=== PATIENT | male | born 1970 | race Caucasian/White ===

== ENCOUNTER 2016-06-30 15:22 | Emergency (ER) | payer OTHER, BC ==
[~2016-06-30] VITALS: Ht 180.3 cm; Wt 179.0 kg
[2016-06-30 15:28] VITALS: TEMP 36.5; Ht 180.3 cm; Wt 179.0 kg
[2016-06-30] MEDS ORDERED: CYCL10TA7 PO (16:07)
--- NOTE | 2016-06-30 17:22 | DIAGNOSTIC IMAGING REPORT ---
LEFT FEMUR 2 VIEWS ROUTINE CLINICAL HISTORY: pain to LEFT hip s/o fall trauma. Pain. COMPARISON: None. DISCUSSION: Mild degenerative change. Mild calcific trochanteric bursitis. No evidence for fracture. There is no evidence for soft tissue swelling. IMPRESSION: Mild degenerative change. No acute process. Mild calcific trochanteric bursitis left hip Electronically signed by: García Oconnor M.D. 06/30/2016 5:20 PM
--- NOTE | 2016-06-30 17:26 | DIAGNOSTIC IMAGING REPORT ---
LUMBAR SPINE 5 VIEWS HISTORY: Trauma. Pain. pain s/p fall COMPARISON: None. FINDINGS: Moderate degenerative disc change. No evidence for subluxation. No evidence for compression deformity. IMPRESSION: Moderate degenerative change. No acute bony abnormality. Electronically signed by: García Oconnor M.D. 06/30/2016 5:24 PM
--- NOTE | 2016-06-30 17:27 | DIAGNOSTIC IMAGING REPORT ---
PELVIS 1 OR 2 VIEW ROUTINE CLINICAL HISTORY: pain to LEFT hip s/p fall trauma. Pain. COMPARISON: None DISCUSSION: Mild degenerative change of both hips. Mild degenerative change sacroiliac joints and iliac wings bilaterally. No acute bony abnormality. IMPRESSION: Mild to moderate degenerative change. No acute bony abnormality. Electronically signed by: García Oconnor M.D. 06/30/2016 5:25 PM
[2016-06-30] MEDS ORDERED: CELE1CAP30 PO (17:39)
[2016-06-30] MEDS ORDERED: TRIA75TA53 PO (17:39)
[2016-06-30] MEDS ORDERED: HYDR-5688 PO (18:11)
--- NOTE | 2016-06-30 18:12 | EMERGENCY ROOM VISIT NOTE ---
History First contact with patient: 15:37 Chief Complaint: HIP PAIN Stated Complaint: LEFT HIP, LEG AND BACK PAIN History of Present Illness The patient is a 46 year old male who presents to the Emergency Department by private vehicle for evaluation of his LEFT leg pain, hip pain, and low back pain. He reports that while at work he accidentally stepped into a hole and twisted awkwardly falling to the ground landing on his LEFT side. He denies striking his head or any loss of consciousness. He reports progressively worsening pain the LEFT-sided hip, low back, and leg which is worsened throughout the day. He denies any numbness or tingling into the distal extremity. He denies any loss of control bowel/bladder or saddle anesthesia. The patient rates his current discomfort as a 6/10. He is to nothing over-the- counter this point her symptoms. He denies any history of fracture or injury to the affected areas. He denies any associated neck pain, upper back pain, knee pain, or ankle pain. Review of Systems A complete 10-point Review of Systems was discussed with the patient, with pertinent positives and negatives listed in the History of Present Illness. All remaining Review of Systems questions can be considered negative unless otherwise specified. Social History Smoking Status: Never Smoker Drug Use: none Housing Status: lives with family Occupation Status: employed Current/Historical Medications Scheduled Allopurinol (Allopurinol), 300 MG PO DAILY Ascorbic Acid (Vitamin C), 1,000 MG PO DAILY Celecoxib (Celecoxib), 200 MG PO DAILY Cholecalciferol (Vitamin D3), 2,000 INTER.UNIT PO DAILY Fish Oil ([place]-3), 1 CAP PO QPM Lisinopril (Lisinopril), 10 MG PO DAILY Triamterene/Hctz (Maxzide 75MG/50MG), 0.5 TAB PO DAILY Zinc Gluconate (Zinc), 50 MG PO DAILY Scheduled PRN Cyclobenzaprine HCl (Cyclobenzaprine HCl), 10 MG PO HS PRN for Muscle Spasm Hydrocodone/Acetaminophen 5MG/325MG ([place] 5MG/325MG), 1-2 TABLET PO Q4H PRN for Pain Allergies Coded Allergies: No Known Allergies (Unverified , 06/30/16) Physical Exam Vital Signs Date Time Temp Pulse Resp B/P Pulse Ox O2 Delivery O2 Flow Rate FiO2 06/30/16 18:30 79 18 152/87 98 06/30/16 15:28 36.5 83 22 168/98 96 Room Air Pain Rating (0-10): 6 Physical Exam VITAL SIGNS - Vital signs and nursing notes were reviewed. GENERAL - 46-year-old male appearing his stated age and in noticeable discomfort throughout the exam. ABDOMEN - Obese abdomen. Soft and non-tender to palpation. Bowel sounds normoactive all four quadrants. MUSCULOSKELETAL - mild reproducible tenderness to palpation to the left-sided lower lumbar paraspinal muscle distribution. No point tenderness over the spinous processes. Mild reproducible tenderness to palpation appreciated to the LEFT-sided greater trochanter. No pain extending into the lower leg or knee. Full range of motion of the affected hip and knee appreciated. +5/5 strength appreciated bilaterally of the lower extremities. NEUROLOGIC/VASCULAR - Neurovascularly intact distally with +3/5 dorsalis pedis pulses palpated bilaterally. Normal sensation to light and sharp touch appreciated distally. Medical Decision & Procedures ER Provider Diagnostic Interpretation: Radiological imaging and reports were reviewed by myself. Radiologist's Interpretation as follows: LEFT FEMUR 2 VIEWS ROUTINE CLINICAL HISTORY: pain to LEFT hip s/o fall trauma. Pain. COMPARISON: None. DISCUSSION: Mild degenerative change. Mild calcific trochanteric bursitis. No evidence for fracture. There is no evidence for soft tissue swelling. IMPRESSION: Mild degenerative change. No acute process. Mild calcific trochanteric bursitis left hip PELVIS 1 OR 2 VIEW ROUTINE CLINICAL HISTORY: pain to LEFT hip s/p fall trauma. Pain. COMPARISON: None DISCUSSION: Mild degenerative change of both hips. Mild degenerative change sacroiliac joints and iliac wings bilaterally. No acute bony abnormality. IMPRESSION: Mild to moderate degenerative change. No acute bony abnormality. LUMBAR SPINE 5 VIEWS HISTORY: Trauma. Pain. pain s/p fall COMPARISON: None. FINDINGS: Moderate degenerative disc change. No evidence for subluxation. No evidence for compression deformity. IMPRESSION: Moderate degenerative change. No acute bony abnormality. ED Course Patient was seen and evaluated by myself. The patient declines anything for pain while in the emergency department. X-ray of the lumbar spine, pelvis, and femur were obtained. Imaging results as above. Imaging results were reviewed with the patient who acknowledges understanding. The patient was educated on following up closely with his primary care provider from today's visit for Workmen's Compensation approved provider. The patient was educated on worrisome symptoms for return visit to the emergency department. Patient discharged home in good condition. Medical Decision Given the patient's presentation and exam findings, I did elect to perform the above-mentioned workup. The patient presented today with ongoing LEFT-sided hip and low back pain. He has reproducible tenderness to palpation in these locations. He declines any pain while in the emergency setting. His imaging studies were otherwise unremarkable. The patient has likely sustained a strain of his lumbar spine with a muscular contusion to the LEFT hip area. Regardless , the patient will need to follow closely with his primary care provider or Workmen's Compensation provider in the event that his symptoms are not improving. He was provided a work note for the next few days. He was provided pain medication for breakthrough symptoms. He was educated on worrisome symptoms for return visit to the emergency department. Patient discharged home in good condition. In the evaluation and treatment of this patient the following differential diagnoses were considered: Cauda equina syndrome, discitis, HNP, sciatica, epidural abscess, psoas abscess, musculoskeletal strain, lumbar fracture, lumbar dislocation, lumbar subluxation, spondylolisthesis, spondylosis, or compression fracture. Impression Primary Impression: Hip pain Additional Impressions: Lumbar strain, Fall Departure Information Dispostion Home / Self-Care Condition GOOD Prescriptions Hydrocodone/Acetaminophen 5MG/325MG ([place] 5MG/325MG) Tab 1-2 TABLET PO Q4H Y for Pain, #20 TAB For Initial Treatment Prov: Mariano Duarte PA-C 06/30/16 Referrals Parmjit Haile M.D. (PCP) Patient Instructions A Signature Page, My [facility] Additional Instructions You have been treated in the Emergency Department for Hip Pain/Strain and Lumbar Strain.s. You have been prescribed [place] to be used for pain control. This is a narcotic medication. You cannot drive or consume alcohol while on this medicine. This medicine should only be used for pain that cannot be controlled with over-the- counter pain medicines. For pain control, you can use the following [id number] medicines (if >12 yo): - Regular strength (325mg/tab) Tylenol (acetaminophen) 2 tabs every 4-6 hours as needed. Do not exceed 12 tablets in a 24 hour period. Avoid taking more than 4 grams (4000 mg) of Tylenol per day. This includes any other sources of acetaminophen you may take on a regular basis. - Regular strength (200 mg/tab) Advil (ibuprofen) 1-2 tabs every 4-6 hours as needed. Do not exceed a dose of 3200 mg per day. If this is a recent injury (<24 hrs), ice can be applied to the area of pain for the first 3 days to help decrease pain and inflammation. Ice massages can be performed by freezing water in a paper cup, peeling back the cup to expose the ice and then massaging over the affected area. Please be cautious with your movements of the next few days. Follow-up with your primary care provider or orthopedic surgeon if your symptoms are not improving over the next 4-5 days. Return to the Emergency Department if your current symptoms worsen despite treatment course outlined above.
[2016-06-30 18:30] VITALS: BP 152/87; PULSE 79; O2SAT 98
[2017-06-26] MEDS ORDERED: MAGN400T6 PO (12:11)
[2017-06-26] MEDS ORDERED: CHOL20005 PO (16:07)
[2017-06-26] MEDS ORDERED: ALL300 PO (17:39)
[2017-06-26] MEDS ORDERED: ASCO10003 PO (17:39)
[2017-06-26] MEDS ORDERED: LISI-461 PO (17:39)
[2017-06-26] MEDS ORDERED: OMEG10007 PO (17:39)
[2017-06-26] MEDS ORDERED: ZINC1TAB PO (17:39)
== END 2016-06-30 18:30 | disposition home or self-care (01) ==
LOC: C.EDB 15:25 → C.EDD 18:30
DX: S39.012A Strain of muscle, fascia and tendon of lower back, initial encounter (principal); M25.552 Pain in left hip; W17.2XXA Fall into hole, initial encounter; Y99.0 Civilian activity done for income or pay; Z79.899 Other long term (current) drug therapy

== ENCOUNTER 2017-06-01 08:00 | Day surgery (SDC) | payer BC ==
[2017-05-26 12:14] VITALS: BMI 55.0
--- NOTE | 2017-05-26 12:36 | PAT Medication Instructions ---
Service Date May 26, 2017. Current Home Medication List Allopurinol (Allopurinol), 300 MG PO QAM Ascorbic Acid (Vitamin C), 1,000 MG PO QAM Cholecalciferol (Vitamin D3), 2,000 INTER.UNIT PO QAM Fish Oil ([place]-3), 1 CAP PO QPM Lisinopril (Lisinopril), 10 MG PO QAM Magnesium Oxide (Mag-Ox), 400 MG PO QPM Triamterene/Hctz (Maxzide 75MG/50MG), 0.5 TAB PO QAM Zinc Gluconate (Zinc), 50 MG PO QAM Medication Instructions For Your Scheduled Surgery - Hold the following medications starting 05/26/17: Fish Oil ([place]-3), 1 CAP PO QPM - Hold the following medications the morning of surgery: Ascorbic Acid (Vitamin C), 1,000 MG PO QAM Cholecalciferol (Vitamin D3), 2,000 INTER.UNIT PO QAM Lisinopril (Lisinopril), 10 MG PO QAM Triamterene/Hctz (Maxzide 75MG/50MG), 0.5 TAB PO QAM Zinc Gluconate (Zinc), 50 MG PO QAM - Take the following medications the morning of surgery with a sip of water: Allopurinol (Allopurinol), 300 MG PO QAM - Take the following medications as scheduled the night before surgery: Magnesium Oxide (Mag-Ox), 400 MG PO QPM If you have any questions please call us at [phone] or [phone] or [phone]
[2017-05-26 13:25] LABS: HEMATOCRIT 43.8 % (42-52); MEAN CELL VOLUME 89.8 fL (80-100); MEAN CORPUSCULAR HEMOGLOBIN 29.9 pg (25-34); MEAN CORPUSCULAR HGB CONC 33.3 g/dl (32-36); PLATELET COUNT 258 K/uL (130-400); RED BLOOD COUNT 4.88 M/uL (4.7-6.1); WHITE BLOOD COUNT 6.74 K/uL (4.8-10.8)
[2017-05-26 13:33] LABS: PARTIAL THROMBOPLASTIN RATIO 1.1; PROTHROMBIN TIME (PATIENT) 10.7 SECONDS (9.0-12.0)
[2017-05-26 15:07] LABS: CALCIUM 9.8 mg/dl (8.5-10.1); CREATININE 0.89 mg/dl (0.60-1.40); POTASSIUM 4.3 mmol/L (3.5-5.1)
[2017-05-30 15:09] VITALS: BMI 55.0
[~2017-06-01] VITALS: Ht 180.3 cm; Wt 179.3 kg
--- NOTE | 2017-06-01 07:08 | HISTORY & PHYSICAL EXAMINATION ---
DATE OF ADMISSION: 06/01/2017 CHIEF COMPLAINT: Right foot persistent pain and discomfort and difficulty with shoewear. HISTORY OF PRESENT ILLNESS: The patient is a 47-year-old gentleman who presents for treatment of his right foot. He has been a long-term patient of my partner Dr. Baker. He has had a several year history of the right-lateral sided foot pain that has become worse with time. He has attempted conservative care including widened shoes and padding without adequate relief. He has a significant bunionette deformity. X-rays show bony prominence and a wide fourth and fifth intermetatarsal space. He elected to proceed with surgical treatment. PAST MEDICAL HISTORY: 1. Hypertension. 2. Sleep apnea. 3. Obesity. 4. Low back pain. PAST SURGICAL HISTORY: None. ALLERGIES: No known drug allergies. CURRENT MEDICINES: 1. Triamterene/hydrochlorothiazide. 2. Lisinopril. 3. Allopurinol. 4. Vitamin C. 5. Zinc. 6. Magnesium. 7. Vitamin D. 8. Fish oil. SOCIAL HISTORY: 47-year-old male. He does not smoke. No significant alcohol intake. FAMILY HISTORY: Noncontributory. REVIEW OF SYSTEMS: Negative for diabetes, neurologic problems, vascular problems, bleeding disorders. Denies any chest pain, no shortness of breath. No history of DVT or PE. PHYSICAL EXAMINATION: GENERAL: Reveals a slow pleasant, fairly large, middle-aged male. He looks to be in reasonably good health. HEENT: Benign. NECK: Supple. No lymphadenopathy. LUNGS: Clear to auscultation. HEART: Regular rate and rhythm. ABDOMEN: Soft, nontender, nondistended. EXTREMITIES: Grossly neurovascularly intact except as follows: Examination of the right foot reveals a prominent fifth metatarsal head and bunionette deformity. There appears to be a bursa inflammation in this area as well. He can flex and extend his toes appropriately. There are no areas of infection. X-RAYS: X-rays of the right foot reviewed. It shows a fairly prominent spur enlarged fifth metatarsal head with a slightly widened fourth and fifth intermetatarsal space measuring about 10 degrees. ASSESSMENT: 47-year-old male with persistent right foot pain consistent with bunionette deformity. He has failed conservative treatment and would like to have this fixed. PLAN: We are going to take him to the operating room and do a right bunionette correction. We will remove this fifth metatarsal head prominence and likely do a fifth metatarsal osteotomy. We planned on doing this at the surgical center, but due to his large size it has to be done in the main OR. The risks and benefits of this procedure were explained to the patient including but not limited to DVT, PE, , infection, neurological injury, vascular injury, bleeding problem, pain, limited range of motion, stiffness, failure to relieve symptoms, incomplete relief of symptoms, need for further surgery in the future, fracture, leg length inequality, nerve palsy, persistent pain, nonunion, malunion, recurrence of the deformity, etc. The patient understands and desires to proceed. Informed consent was obtained. We will plan on discharging him to home as long as things go well intraoperatively. He will need to wear a postop shoe for the next 4-6 weeks.
[~2017-06-01 08:00] MED LIST: ALL300 PO; ASCO10003 PO; CEFAZOLIN 3000MG IV PUSH 15 ML IV SCH; CHOL20005 PO; LACTATED RINGER'S 1000ML 1,000 ML IV SCH; LACTATED RINGER'S 1000ML IV SCH; LISI-461 PO; MAGN400T6 PO; OMEG10007 PO; TRIA75TA53 PO; ZINC1TAB PO
[2017-06-01] MEDS ORDERED: ONDANSETRON INJ 2 MG/ML 2 ML VIAL IV PRN (08:15)
[2017-06-01] MEDS ORDERED: ATROPINE SULFATE 0.1 MG/ML 5ML SYR IV PRN (08:15)
[2017-06-01] MEDS ORDERED: FENTANYL CITRATE INJ 50 MCG/1 ML 2 ML VIAL IV PRN (08:15)
[2017-06-01] MEDS ORDERED: HYDROmorphone INJ 1 MG/ML SYR IV PRN (08:15)
[2017-06-01] MEDS ORDERED: EpHEDrine SULFATE INJ 50 MG/ML AMP IV PRN (08:15)
[2017-06-01 08:32] VITALS: BP 151/94; PULSE 70; TEMP 36.7; O2SAT 97; Ht 180.3 cm; Wt 179.3 kg
[2017-06-01] MEDS ORDERED: FENTANYL CITRATE INJ 50 MCG/1 ML 2 ML VIAL ONE (09:16)
[2017-06-01] MEDS ORDERED: MIDAZOLAM HCL 1 MG/ML 2ML VIAL ONE (09:16)
[2017-06-01] MEDS ORDERED: BACITRACIN 50000 UNIT VIAL ONE (10:13)
[2017-06-01] MEDS ORDERED: BUPIVACAINE/EPINEPHRINE 0.5% MPF 1:200,000 30 ML VIAL ONE (10:53)
[2017-06-01] MEDS ORDERED: PROPOFOL IV EMULSION 10 MG/ML 20 ML VIAL IV ONE (11:08)
[2017-06-01] MEDS ORDERED: ROCURONIUM BROMIDE 10 MG/ML 5 ML VIAL IV ONE (11:08)
[2017-06-01] MEDS ORDERED: SUCCINYLCHOLINE 100MG/5ML SYR IV ONE (11:09)
[2017-06-01] MEDS ORDERED: ONDANSETRON INJ 2 MG/ML 2 ML VIAL ONE (11:09)
[2017-06-01] MEDS ORDERED: DEXAMETHASONE SOD INJ 4 MG/ML VIAL ONE (11:09)
--- NOTE | 2017-06-01 11:56 | [facility] Post Operative Brief Note ---
Immediate Operative Summary Operative Date Jun 01, 2017. Pre-Operative Diagnosis Persistent Right Foot Pain with Bunionette Deformity Post-Operative Diagnosis Persistent Right Foot Pain with Bunionette Deformity Procedure(s) Performed Right Foot Bunionette Correction, 5th Metatarsal Osteotomy Surgeon Dr. Vela Medical Communication Specialist Surgeon(s) JESSY Mills Estimated Blood Loss 10 ML Findings Bunnionette Fluids (cc crystalloids) 1000 cc Specimens None per Surgeon Drains None Anesthesia General Complication(s) None Disposition Recovery Room / PACU
[2017-06-01] MEDS ORDERED: SODIUM CHLORIDE 0.9% 1000ML 1,000 ML IV SCH (11:59)
[2017-06-01] MEDS ORDERED: CEFAZOLIN IV 2,000 MG in DEXTROSE 5% 50ML 50 ML IV SCH (12:00)
[2017-06-01] MEDS ORDERED: OXYCODONE/ACETAMINOPHEN 5-325 TAB PO PRN ×2 (12:00)
--- NOTE | 2017-06-01 12:02 | Discharge Instructions ---
Discharge Instructions Date of Service Jun 01, 2017. Admission Reason for Admission: Right Foot Bunionette Discharge Discharge Diagnosis / Problem: RIGHT FOOT PAIN, BUNIONETTE Discharge Goals Goal(s): Decrease discomfort, Therapeutic intervention Activity Recommendations Activity Limitations: per Instructions/Follow-up section Weightbearing Status: Right weightbearing (as tolerated ON HEEL WITH POST OP SHOE ) . Instructions / Follow-Up Instructions / Follow-Up MEDICATIONS: * Resume previous medications unless instructed otherwise by your surgeon. * Always take pain medication on a full stomach or with food to avoid upset stomach. * Do not drink alcohol or drive while taking narcotics. * Ibuprofen or Tylenol may be taken if narcotic not needed. SPECIAL CARE INSTRUCTIONS: __ None _X_ Keep extremity elevated and iced x 48 hours; apply ice 20-30 minutes 8-10 times/day. May remove at night. __ Crutches __ May discard when able __ Brace/Post-op shoe __ 24 hrs/day __ Remove at night _X_ Dressing _X_ Maintain until seen in office, may shower with plastic over site __ Remove dressings in 24-48 hours and then may shower __ Cover incisions with band-aids after showering __ Do not remove steri-strips Call physician if chills or temperature rises above 102 degrees or pain unrelieved by prescribed pain medications. Office [phone] FOLLOW UP IN 2 WEEKS Current Hospital Diet Patient's current hospital diet: Discharge Diet Recommended Diet: Regular Diet Procedures Procedures Performed: Right Foot Bunionette Correction, 5th Metatarsal Osteotomy Pending Studies Studies pending at discharge: no Medical Emergencies . Who to Call and When: Medical Emergencies: If at any time you feel your situation is an emergency, please call 911 immediately. . Non-Emergent Contact Non-Emergency issues call your: Surgeon . "Provider Documentation" section prepared by Lucio Martínez. . VTE Core Measure Inpt VTE Proph given/why not?: Treatment not indicated
[2017-06-01 12:45] VITALS: BP 129/64; PULSE 80; TEMP 36.1; O2SAT 91
[2017-06-01 13:15] VITALS: BP 118/52; PULSE 71; TEMP 36.8; O2SAT 95
--- NOTE | 2017-06-01 13:15 | Anesthesiology Progress Note ---
Anesthesia Post Op Note Date & Time Jun 01, 2017 at 12:44 Vital Signs Pain Intensity: 0 Vital Signs Past 12 Hours Date Time Temp Pulse Resp B/P (MAP) Pulse Ox O2 Delivery O2 Flow Rate FiO2 06/01/17 12:37 36.5 06/01/17 12:36 136/70 06/01/17 12:34 72 22 06/01/17 12:34 70 22 95 06/01/17 12:31 132/72 06/01/17 12:29 86 16 06/01/17 12:29 85 16 88 06/01/17 12:26 146/74 06/01/17 12:24 86 18 06/01/17 12:24 85 18 90 06/01/17 12:21 136/78 06/01/17 12:19 79 22 06/01/17 12:19 78 22 93 06/01/17 12:16 145/81 06/01/17 12:14 86 23 95 06/01/17 12:14 86 23 06/01/17 12:11 151/83 06/01/17 12:09 84 24 95 06/01/17 12:09 85 24 06/01/17 12:05 156/82 06/01/17 12:04 91 24 06/01/17 12:04 91 24 94 06/01/17 12:01 156/82 06/01/17 12:00 172/87 06/01/17 11:59 88 25 06/01/17 11:59 88 25 96 06/01/17 11:59 36.5 87 16 172/87 96 Oxymask 10 06/01/17 08:32 36.7 70 18 151/94 (113) 97 Room Air Notes Mental Status: alert / awake / arousable, participated in evaluation Pt Amnestic to Procedure: Yes Nausea / Vomiting: adequately controlled Pain: adequately controlled Airway Patency, RR, SpO2: stable & adequate BP & HR: stable & adequate Hydration State: stable & adequate Anesthetic Complications: no major complications apparent The patient is doing well in recovery with no pain. His upper lip is a little swollen from the intubation as the Glidescope likely caught his upper lip, teeth intact. I informed him that this should improve over the next couple days. I also instructed him to use his CPAP at home whenever he thinks he may asleep even if just a for a nap on the couch or recliner. He understands and agrees.
[2017-06-01 13:45] VITALS: BP 137/61; PULSE 76; O2SAT 93
--- NOTE | 2017-06-01 13:54 | DIAGNOSTIC IMAGING REPORT ---
R FOOT 2 VIEWS CLINICAL HISTORY: RT METATARSAL OSTEOTOMY COMPARISON STUDY: Right foot radiographs May 03, 2017. FLUOROSCOPY TIME: 17 seconds. FINDINGS: 2 fluoroscopic images demonstrate expected findings following a distal right fifth metatarsal osteotomy. A screw is in place. There are no unexpected radiopaque foreign bodies. Hardware is intact. IMPRESSION: Expected findings following right fifth metatarsal osteotomy. Electronically signed by: Salbador Mejía M.D. 06/01/2017 1:52 PM Dictated Date/Time: 06/01/2017 1:51 PM
--- NOTE | 2017-06-01 13:57 | OPERATIVE REPORT ---
DATE OF OPERATION: 06/01/2017 SURGEON: Dr. Morgan Vela. DONOR SERVICES SPECIALIST: JESSY Garcia PREOPERATIVE DIAGNOSIS: Right symptomatic bunionette deformity. POSTOPERATIVE DIAGNOSIS: Same. PROCEDURE: Right bunionette correction with distal metatarsal Chevron osteotomy. COMPLICATIONS: None. ESTIMATED BLOOD LOSS: 10 mL. TOURNIQUET TIME: 41 minutes at 350 mmHg. ANESTHETIC: General. SPECIMENS: None. OPERATIVE IMPLANTS: Operative implants consisted of a Synthes 2.0 titanium fully threaded cortical screw. OPERATIVE INDICATIONS: The patient is a 47-year-old gentleman who has had a fairly long history of right foot pain and discomfort. He describes it has gotten worse over the years. He tried a combination of shoe wear, but had a very wide foot. He continued to bother by fifth lateral eminence pain. He had an extra bony growth in that area of his foot as well. He had significant bursitis. He elected to proceed with surgical treatment. OPERATIVE PROCEDURE: The patient was taken to the operating room, identified and placed on the operating table in the supine position. All contact areas were appropriately padded. IV antibiotics were provided by the anesthesia team. A general anesthetic was implemented by anesthesia team. Right thigh tourniquet was then placed. The right lower extremity was then prepped and draped in the usual sterile fashion. The right leg was elevated and exsanguinated with Esmarch and tourniquet was placed at 350 mmHg. A direct lateral approach to the fifth metatarsal was then performed through a long curvilinear incision over the lateral aspect of the fifth MTP joint. A sharp dissection was carried out through the subcutaneous tissue down to the level of the joint capsule. I then made an incision in the joint capsule on the dorsal side and elevated the soft tissue capsule off the fifth MTP joint. I exposed the MTP joint. I then used a saw to resect the prominent osteophyte/spur off the fifth metatarsal head. I then examined the foot and I was still concerned about the width, so I elected to perform an osteotomy. A Chevron osteotomy was then performed of the fifth metatarsal. I first placed a K-wire on the apex of the osteotomy just distal to the center point of the metatarsal head. I then used a microsagittal saw to create a Chevron osteotomy with an angle of about 50 degrees. I then very carefully loosened this and then shifted the distal piece medial and pulled the fifth metatarsal laterally. I then held this and fixed it with a single 2.0 titanium screw. This provided good fixation. I then used a saw to resect the residual eminence. X-ray was brought in and I felt this was optimally fixed and corrected. I irrigated the wound extensively. I injected locally with 20 mL of 0.5% Marcaine with epinephrine. The capsule was then repaired with 2-0 Vicryl suture in a [id number] fashion. The tourniquet was then let down for a tourniquet time of 42 minutes. Hemostasis was assured with the use of electrocautery. The wound was once again irrigated. Subcutaneous tissues were then closed with 2-0 Vicryl suture in a buried interrupted fashion and the skin was closed with 3-0 nylon suture in a horizontal mattress fashion. The foot was then cleaned and dried and a sterile dressing of Xeroform, 4 x 4, sterile cast padding, Coban wrap and IPOS shoe were applied. The patient was then brought out of general anesthesia and transferred to the recovery room in stable condition. The patient tolerated the procedure well with no complications. All needle and sponge counts were correct at the end of the operation. I attest to the content of the Intraoperative Record and any orders documented therein. Any exception s are noted below.
== END 2017-06-01 13:50 | disposition home or self-care (01) ==
LOC: C.ACU 08:00
PROVIDERS: ATTEND Orthopaedic Surgery Sports Medicine
DX: M21.621 Bunionette of right foot (principal); G47.33 Obstructive sleep apnea (adult) (pediatric); E66.01 Morbid (severe) obesity due to excess calories; I10 Essential (primary) hypertension; Z68.43 Body mass index [BMI] 50.0-59.9, adult; Z98.52 Vasectomy status; F17.200 Nicotine dependence, unspecified, uncomplicated

== ENCOUNTER 2017-06-26 21:04 | Inpatient (IN) | payer BC, OTHER ==
[~2017-06-26] VITALS: Ht 175.3 cm; Wt 179.8 kg
[~2017-06-26 21:04] MED LIST changes: -CEFAZOLIN 3000MG IV PUSH 15 ML IV SCH; -LACTATED RINGER'S 1000ML 1,000 ML IV SCH; -LACTATED RINGER'S 1000ML IV SCH
[2017-06-26] MEDS ORDERED: TRIATAB3 PO (21:48)
[2017-06-26] MEDS ORDERED: CINN1CAP2 PO (21:48)
[2017-06-26 22:09] LABS: BASO % 0.4 %; BASO ABS # 0.03 K/uL (0-0.2); EOS % 1.5 %; EOS ABS # 0.12 K/uL (0-0.5); HEMATOCRIT 42.9 % (42-52); HEMOGLOBIN 14.5 g/dL (14.0-18.0); IG# 0.04 K/uL (0.00-0.02); LYMPH ABS # 0.89 K/uL (1.2-3.4); MEAN CELL VOLUME 88.6 fL (80-100); MEAN CORPUSCULAR HGB CONC 33.8 g/dl (32-36); MEAN PLATELET VOLUME 9.7 fL (7.4-10.4); MONO ABS # 0.89 K/uL (0.11-0.59); NEUT % 75.6 %; NEUT ABS # 6.09 K/uL (1.4-6.5); PLATELET COUNT 227 K/uL (130-400); RED CELL DISTRIBUTION WIDTH CV 12.7 % (11.5-14.5); RED CELL DISTRIBUTION WIDTH SD 40.9 fL (36.4-46.3); WHITE BLOOD COUNT 8.06 K/uL (4.8-10.8)
--- NOTE | 2017-06-26 22:13 | DIAGNOSTIC IMAGING REPORT ---
CHEST ONE VIEW PORTABLE CLINICAL HISTORY: sob/bk pain, recent OR chest pain COMPARISON STUDY: 06/30/2015 FINDINGS: The bones soft tissues and hemidiaphragms are normal. The cardiomediastinal silhouette is normal. The lungs are clear. The pulmonary vasculature is normal. IMPRESSION: Negative chest. The above report was generated using voice recognition software. It may contain grammatical, syntax or spelling errors. Electronically signed by: García Oconnor M.D. 06/26/2017 10:12 PM Dictated Date/Time: 06/26/2017 10:11 PM
[2017-06-26 22:30] LABS: ALBUMIN 3.9 gm/dl (3.4-5.0); ALT/SGPT 38 U/L (12-78); BLOOD UREA NITROGEN 16 mg/dl (7-18); CALCIUM 9.7 mg/dl (8.5-10.1); CARBON DIOXIDE 28 mmol/L (21-32); CREATININE 1.08 mg/dl (0.60-1.40); GLUCOSE 100 mg/dl (70-99); POTASSIUM 4.1 mmol/L (3.5-5.1); SODIUM 138 mmol/L (136-145)
[2017-06-26 22:35] LABS: ALKALINE PHOSPHATASE 111 U/L (45-117); AST/SGOT 16 U/L (15-37); TOTAL PROTEIN 7.5 gm/dl (6.4-8.2)
[2017-06-26] MEDS ORDERED: OPTIRAY 320 IV PRN (22:45)
--- NOTE | 2017-06-26 23:06 | DIAGNOSTIC IMAGING REPORT ---
(CHEST FOR PE) ANGIO WITH CT DOSE: 763.28 mGy.cm HISTORY: Chest pain dyspnea TECHNIQUE: Multiaxial CT images of the chest were performed following the intravenous administration of contrast to evaluate the pulmonary arteries. Maximal intensity projection images were also obtained. A dose lowering technique was utilized adhering to the principles of ALARA. COMPARISON STUDY: None FINDINGS: Limited study due to artifact due to patient body habitus. No last, this study confirms the presence of acute pulmonary emboli. These primarily are in the right middle and right lower lobe pulmonary arterial distributions. There are third order pulmonary emboli involving the left lung base. Scattered areas of nonspecific pleural thickening are identified over the lung bases. Mild nonspecific interstitial changes seen in the lungs bilaterally. Evaluation of mediastinal and hilar adenopathy is problematic again due to the artifact present. Moderate adenopathy and no left appears to be present measuring up to 2 cm. There is possibility of a central pulmonary embolus involving the proximal left lower lobe pulmonary vasculature. Limited evaluation the upper abdomen is considered unremarkable. IMPRESSION: 1. Study is positive for bilateral acute pulmonary emboli more prominent in the right middle and right lower lobe regions. 2. Moderate mediastinal and hilar adenopathy. 3. Interstitial and scattered foci of pleural thickening in the mid to lower lung regions bilaterally. 4. Follow-up scanning at a later date is recommended to ensure complete resolution of the pleural based and parenchymal basilar nodularity, and foci of pleural thickening. The above report was generated using voice recognition software. It may contain grammatical, syntax or spelling errors. Electronically signed by: García Oconnor M.D. 06/26/2017 11:05 PM Dictated Date/Time: 06/26/2017 11:01 PM
[2017-06-27] VITALS (10 sets, daily range): BP systolic 104–132; BP diastolic 69–84; PULSE 60–85; TEMP 36.6–37; O2SAT 90–95; Ht 175.3 cm; Wt 179.8 kg
[2017-06-27] MEDS ORDERED: KETOROLAC TROMETHAMINE 30 MG/ML VIAL IV STA (01:59)
[2017-06-27] MEDS ORDERED: IPRATROPIUM BROMIDE NEB SOLN 0.02% 2.5 ML VIAL INH PRN (03:00)
[2017-06-27] MEDS ORDERED: LEVALBUTEROL 1.25MG/0.5ML NEB INH PRN (03:00)
[2017-06-27] MEDS ORDERED: TRAMADOL HCL 50 MG TAB PO PRN (03:00)
[2017-06-27] MEDS ORDERED: ACETAMINOPHEN 325 MG TAB PO PRN (03:00)
[2017-06-27] MEDS ORDERED: ONDANSETRON 8MG OD TAB PO PRN (03:00)
[2017-06-27] MEDS ORDERED: HEPARIN IV BOLUS 10,000 UNIT in SYRINGE 0 ML IV ONE (03:00)
[2017-06-27] MEDS ORDERED: LEVALBUTEROL/IPRATROPIUM NEB INH SCH (03:00)
[2017-06-27] MEDS ORDERED: HEPARIN SOD 5000 UNIT/0.5 ML CARP ONE (03:13)
[2017-06-27] MEDS ORDERED: HEPARIN IV BOLUS 5,000 UNIT in SYRINGE 0 ML IV ONE ×2 (03:15→10:15)
[2017-06-27] MEDS: HEPARIN 25,000 UNIT/500ML D5W 500 ML IV PRN ×2 (03:21→10:41)
--- NOTE | 2017-06-27 03:45 | NUR ---
A: Patient received to room 229-2 from ER. Patient ambulated from stretcher to bed. Reports pain with inspiration. Reports back pain. monitor worker applied. SR on monitor. HR in the 70's.+ PP,no edema noted. Lungs clear on RA. VSS. Heparin drip at 44 ml/hr (2200 units/hr) infusing via #20 gauge in right AC.Steri-strips to right foot hx of recent bunion surgery. Code word and fall agreement reviewed and signed. Call jaeger within reach. Family at bedside.
[2017-06-27] MEDS ORDERED: IV FLUIDS COMPLETED PRN (04:00)
--- NOTE | 2017-06-27 04:29 | History and Physical ---
History & Physical Date & Time of Service: Jun 27, 2017 at 04:17 Chief Complaint: Pulmonary Emboli Primary Care Physician: Ruba Wright History of Present Illness Source: patient, family, hospital records The patient presents to emergency department with the acute onset of chest pain and back pain along with worsening shortness of breath. His symptoms are worse when trying to take a deep breath. He does not have a cough, he has not had any recent travels or sick exposures. He did have right ankle/foot surgery early in May. He is not aware of any swelling, pain or cramping in his right lower extremity other than in the immediate postop interval. He has been less ambulatory after the surgery. He reports having choking for oxycodone, which he has rarely used postoperatively. His mother acutely from a pulmonary embolism, and this is his main concern today. Family History Noncontributory Social History Smoking Status: Never Smoker Smokeless Tobacco Use: No Alcohol Use: none Drug Use: none Housing status: lives with family Occupational Status: employed Immunizations History of Influenza Vaccine: Unknown History of Tetanus Vaccine?: Unknown History of Pneumococcal: Unknown History of Hepatitis B Vaccine: Unknown Multi-Drug Resistant Organisms History of MDRO: No Allergies Coded Allergies: No Known Allergies (Unverified , 06/01/17) Home Medications Scheduled Allopurinol (Allopurinol), 300 MG PO QAM Ascorbic Acid (Vitamin C), 1,000 MG PO QAM Cholecalciferol (Vitamin D3), 2,000 INTER.UNIT PO QAM Cinnamon (Cinnamon), 1,000 MG PO QAM Fish Oil ([place]-3), 1 CAP PO QPM Lisinopril (Lisinopril), 10 MG PO QAM Magnesium Oxide (Mag-Ox), 400 MG PO BID Triamterene/Hctz (Triamterene/Hctz 37.5-25MG), 1 TAB PO DAILY Zinc Gluconate (Zinc), 50 MG PO QAM Review of Systems The patient denies palpitations, cough, vision change, hearing change, sore throat, fevers, chills, sweats, nausea, vomiting, diarrhea or constipation , abdominal pain, pelvic pain, blood in urine or stool, dysuria, urinary frequency or urgency, lightheadedness , dizziness, headache, memory loss, loss of consciousness, rash, abnormal bruising or bleeding, generalized arthralgias or myalgias,or night sweats. The review of systems is otherwise negative other than for that already noted above, and at least 10 systems have been reviewed. Physical Exam Vital Signs Date Time Temp Pulse Resp B/P (MAP) Pulse Ox O2 Delivery O2 Flow Rate FiO2 06/27/17 03:36 36.7 85 18 132/84 95 Room Air 06/27/17 03:21 36.5 70 18 132/63 94 06/27/17 03:21 36.5 70 18 132/63 94 Room Air 06/27/17 02:16 75 18 122/65 93 Room Air 06/27/17 01:20 75 06/27/17 00:41 76 20 130/72 95 Room Air 06/26/17 22:36 79 20 116/64 93 Room Air 06/26/17 21:45 94 Room Air 06/26/17 21:45 93 Room Air 06/26/17 21:27 80 06/26/17 21:27 94 Room Air 06/26/17 21:20 97 Room Air 06/26/17 21:13 36.5 85 19 155/87 95 Room Air The patient is awake, well-developed and adequately nourished, alert and oriented 3, normocephalic and atraumatic, lying in bed and in no acute distress. HEENT--PERRL, EOMI, mucous membranes and oropharynx normal. Neck--supple, no JVD or bruits, thyroid normal, trachea midline, no adenopathy. Heart--normal S1 and S2, no extra beats, no murmurs, rubs or gallops. Lungs--clear bilaterally, no respiratory distress, no accessory muscle use. Abdomen--normal bowel sounds and soft, nontender and nondistended, no hernias or masses, obese. Extremities--no cyanosis, clubbing or edema. There are good distal pulses b/l. Dermatologic--normal skin turgor, normal color, warm and dry, no abnormal lymph nodes, no rash. Neurologic--cranial nerves II through XII grossly intact. Psychiatric--normal affect. Diagnostics Laboratory Results Results Past 24 Hours Test 06/26/17 21:54 06/26/17 21:59 06/27/17 00:17 Range/Units White Blood Count 8.06 4.8-10.8 K/uL Red Blood Count 4.84 4.7-6.1 M/uL Hemoglobin 14.5 14.0-18.0 g/dL Hematocrit 42.9 42-52 % Mean Corpuscular Volume 88.6 80-100 fL Mean Corpuscular Hemoglobin 30.0 25-34 pg Mean Corpuscular Hemoglobin Concent 33.8 32-36 g/dl Platelet Count 227 130-400 K/uL Mean Platelet Volume 9.7 7.4-10.4 fL Neutrophils (%) (Auto) 75.6 % Lymphocytes (%) (Auto) 11.0 % Monocytes (%) (Auto) 11.0 % Eosinophils (%) (Auto) 1.5 % Basophils (%) (Auto) 0.4 % Neutrophils # (Auto) 6.09 1.4-6.5 K/uL Lymphocytes # (Auto) 0.89 1.2-3.4 K/uL Monocytes # (Auto) 0.89 0.11-0.59 K/uL Eosinophils # (Auto) 0.12 0-0.5 K/uL Basophils # (Auto) 0.03 0-0.2 K/uL RDW Standard Deviation 40.9 36.4-46.3 fL RDW Coefficient of Variation 12.7 11.5-14.5 % Immature Granulocyte % (Auto) 0.5 % Immature Granulocyte # (Auto) 0.04 0.00-0.02 K/uL Sodium Level 138 136-145 mmol/L Potassium Level 4.1 3.5-5.1 mmol/L Chloride Level 103 98-107 mmol/L Carbon Dioxide Level 28 21-32 mmol/L Anion Gap 7.0 3-11 mmol/L Blood Urea Nitrogen 16 7-18 mg/dl Creatinine 1.08 0.60-1.40 mg/dl Est Creatinine Clear Calc Drug Dose 142.4 ml/min Estimated GFR () 92.9 Estimated GFR (Non- 80.2 BUN/Creatinine Ratio 14.4 10-20 Random Glucose 100 70-99 mg/dl Calcium Level 9.7 8.5-10.1 mg/dl Total Bilirubin 0.5 0.2-1 mg/dl Direct Bilirubin < 0.1 0-0.2 mg/dl Aspartate Amino Transf (AST/SGOT) 16 15-37 U/L Alanine Aminotransferase (ALT/SGPT) 38 12-78 U/L Alkaline Phosphatase 111 45-117 U/L Troponin I < 0.015 0-0.045 ng/ml Total Protein 7.5 6.4-8.2 gm/dl Albumin 3.9 3.4-5.0 gm/dl Bedside D-Dimer > 450 0-450 ng/mlFEU Bedside Troponin I < 0.030 0-0.045 ng/ml Diagnostic Radiology [~ rep ct add3]] CHEST ONE VIEW PORTABLE CLINICAL HISTORY: sob/bk pain, recent OR chest pain COMPARISON STUDY: 06/30/2015 FINDINGS: The bones soft tissues and hemidiaphragms are normal. The cardiomediastinal silhouette is normal. The lungs are clear. The pulmonary vasculature is normal. IMPRESSION: Negative chest. The above report was generated using voice recognition software. It may contain grammatical, syntax or spelling errors. Electronically signed by: Alina Oconnor M.D. 06/26/2017 10:12 PM Dictated Date/Time: 06/26/2017 10:11 PM The status of this report is Signed. Draft = Not yet reviewed or approved by Radiologist. Signed = Reviewed and approved by Radiologist. <AttendingPhy></AttendingPhy> <FamilyPhy>Ruba Wright</FamilyPhy> < PrimaryPhy>Ruba Wright</PrimaryPhy> <UnitNumber>[id number]</UnitNumber> < VisitNumber>[id number]</VisitNumber> <PatientName>ALINA JARRETT</PatientName> <DateOfBirth>1970</DateOfBirth> <Location>[facility]</Location> <ServiceDate></ServiceDate> <MNE>ESINDI</MNE> <OrderingPhy>Tri Gonzales PA-C</ OrderingPhy> <OrderingPhyMNE>f rep ord dr traylor</OrderingPhyMNE> <DictatingPhyMNE> f rep dict dr traylor</DictatingPhyMNE> <CCListMNE>f rep ct m Patient Name: ALINA JARRETT Unit Number: [id number] Dictated: 06/26/172300 Transcribed: 06/26/17 230 MS Printed Date/Time: [~ rep prt dt]/[~ rep prt tm] [~ rep ct labl] - [~ rep ct ivnm] [facility] [place] [address] Dictated: 06/26/172300 Transcribed: 06/26/172300 MS Printed Date/Time: [~ rep prt dt]/[~ rep prt tm] [~ rep ct labl] - [~ rep ct ivnm] [~ rep ct add3]] (CHEST FOR PE) ANGIO WITH CT DOSE: 763.28 mGy.cm HISTORY: Chest pain dyspnea TECHNIQUE: Multiaxial CT images of the chest were performed following the intravenous administration of contrast to evaluate the pulmonary arteries. Maximal intensity projection images were also obtained. A dose lowering technique was utilized adhering to the principles of ALARA. COMPARISON STUDY: None FINDINGS: Limited study due to artifact due to patient body habitus. No last, this study confirms the presence of acute pulmonary emboli. These primarily are in the right middle and right lower lobe pulmonary arterial distributions. There are third order pulmonary emboli involving the left lung base. Scattered areas of nonspecific pleural thickening are identified over the lung bases. Mild nonspecific interstitial changes seen in the lungs bilaterally. Evaluation of mediastinal and hilar adenopathy is problematic again due to the artifact present. Moderate adenopathy and no left appears to be present measuring up to 2 cm. There is possibility of a central pulmonary embolus involving the proximal left lower lobe pulmonary vasculature. Limited evaluation the upper abdomen is considered unremarkable. IMPRESSION: 1. Study is positive for bilateral acute pulmonary emboli more prominent in the right middle and right lower lobe regions. 2. Moderate mediastinal and hilar adenopathy. 3. Interstitial and scattered foci of pleural thickening in the mid to lower lung regions bilaterally. 4. Follow-up scanning at a later date is recommended to ensure complete resolution of the pleural based and parenchymal basilar nodularity, and foci of pleural thickening. The above report was generated using voice recognition software. It may contain grammatical, syntax or spelling errors. Electronically signed by: Alina Oconnor M.D. 06/26/2017 11:05 PM Dictated Date/Time: 06/26/2017 11:01 PM The status of this report is Signed. Draft = Not yet reviewed or approved by Radiologist. Signed = Reviewed and approved by Radiologist. <AttendingPhy></AttendingPhy> <FamilyPhy>Ruba Wright</FamilyPhy> < PrimaryPhy>Ruba Wright</PrimaryPhy> <UnitNumber>[id number]</UnitNumber> < VisitNumber>[id number]</VisitNumber> <PatientName>ALINA JARRETT</PatientName> <DateOfBirth>1970</DateOfBirth> <Location>[facility]</Location> <ServiceDate></ServiceDate> <MNE>ESINDI</MNE> <OrderingPhy>Tri Gonzales PA-C</ OrderingPhy> <OrderingPhyMNE>f rep ord dr traylor</OrderingPhyMNE> <DictatingPhyMNE> f rep dict dr traylor</DictatingPhyMNE> <CCListMNE>f rep ct [place]</CCListMNE> < AdmittingPhyMNE>f pt admit dr traylor</AdmittingPhyMNE> <AttendingPhyMNE>f pt attend dr traylor</AttendingPhyMNE> <ConsultingPhyMNE>f pt consult dr traylor</ConsultingPhyMNE> <FamilyPhyMNE>f pt fam dr traylor</FamilyPhyMNE> <OtherPhyMNE>f pt other dr traylor</OtherPhyMNE> < PrimaryPhyMNE>f pt prim care dr traylor</PrimaryPhyMNE> <ReferringPhyMNE>f pt referring dr traylor</ReferringPhyMNE> EKG EKG shows normal sinus rhythm at 82 bpm, right bundle branch block, no acute ST- T changes Impression Assessment and Plan Bilateral acute pulmonary emboli, greatest right middle and right lower lobe-- Admit to the telemetry unit Bilateral Lower extremity venous Doppler negative Place on heparin infusion standard concentration max bolus of 5000 units units per protocol Discussed conversion to Xarelto, Eliquis for warfarin later in the day. Tramadol 50 mg by mouth every 6 hours when necessary moderate pain Acetaminophen 600 mg by mouth every 6 hours when necessary mild pain Hypercoagulable workup ordered and is pending. Of note, mother is from a pulmonary embolism Pleural thickening and nodules in the bilateral lung bases-- Differential includes reactive changes versus infectious or inflammatory exposure. Patient will need either repeat imaging and/or follow-up in the outpatient setting. Gout-- Continue allopurinol 300 mg by mouth every morning Hypertension-- Hold fish oil and avoid NSAIDs while on anticoagulation Continue lisinopril 10 mg by mouth daily Hold triamterene/HCTZ Level of Care Telemetry Advanced Directives Existing Advance Directive: No Existing Living Will: No Existing Power of Clinical Molecular Geneticist: No Resuscitation Status FULL RESUSCITATION VTE Prophylaxis VTE Risk Assessment Done? Y/N: Yes Risk Level: High Given or contraindicated: Other Anticoagulation Social Service Consult None Apply
[2017-06-27] MEDS: TRAMADOL HCL 50 MG TAB PO PRN ×2 (04:40→19:19)
--- NOTE | 2017-06-27 04:42 | NUR ---
Patient medicated with 100 mg of Ultram for complaints of mid back pain. Patient states that he uses C-PAP at home for sleep. Offered to get patient a C-PAPto use, patient declined, stated he will have bring his own CPAP in. Patient placed on 2 LPM via NC.
[2017-06-27] MEDS ORDERED: MoRPHine SULFATE 2 MG/ML CARP IV STA (06:04)
--- NOTE | 2017-06-27 07:17 | EMERGENCY ROOM VISIT NOTE ---
History First contact with patient: 21:30 Chief Complaint: SHORTNESS OF BREATH Stated Complaint: PULMONARY EMBOLI Nursing Triage Summary: pt c/o sob last night. states pain in right upper back with inspiration. History of Present Illness The patient is a 47 year old male who presents to the Emergency Room with complaints of increasing shortness of breath with mid back pain for the past day who had foot surgery June [address] Vela. He is not on aspirin or any other antiplatelet medication. No history DVT or PE in the past. There is a family history of PE or DVT. Patient chews tobacco and occasionally drinks alcohol. Patient denies chest pain, cough, congestion, abdominal pain, numbness , weakness, tingling. Patient states his foot feels better since the surgery. His leg slightly swollen unchanged. No prior history of DVT, PE or heart disease. Review of Systems See HPI for pertinent positives & negatives. A total of 10 systems reviewed and were otherwise negative. Past Medical/Surgical History Medical Problems: (1) Pulmonary emboli gout, hypertension Social History Smoking Status: Never Smoker Smokeless Tobacco Use: No Drug Use: none Marital Status: Housing Status: lives with family Occupation Status: employed Current/Historical Medications Scheduled Allopurinol (Allopurinol), 300 MG PO QAM Ascorbic Acid (Vitamin C), 1,000 MG PO QAM Cholecalciferol (Vitamin D3), 2,000 INTER.UNIT PO QAM Cinnamon (Cinnamon), 1,000 MG PO QAM Fish Oil (Reva-3), 1 CAP PO QPM Lisinopril (Lisinopril), 10 MG PO QAM Magnesium Oxide (Mag-Ox), 400 MG PO BID Triamterene/Hctz (Triamterene/Hctz 37.5-25MG), 1 TAB PO DAILY Zinc Gluconate (Zinc), 50 MG PO QAM Physical Exam Vital Signs Date Time Temp Pulse Resp B/P (MAP) Pulse Ox O2 Delivery O2 Flow Rate FiO2 06/27/17 02:16 75 18 122/65 93 Room Air 06/27/17 01:20 75 06/27/17 00:41 76 20 130/72 95 Room Air 06/26/17 22:36 79 20 116/64 93 Room Air 06/26/17 21:45 94 Room Air 06/26/17 21:45 93 Room Air 06/26/17 21:27 80 06/26/17 21:27 94 Room Air 06/26/17 21:20 97 Room Air 06/26/17 21:13 36.5 85 19 155/87 95 Room Air Physical Exam VITALS: Vitals are noted on the nurse's note and reviewed by myself. Vital signs stable. GENERAL: Pleasant male, in no acute distress, nondiaphoretic, well-developed well-nourished. SKIN: The skin was without rashes, erythema, edema, or bruising. There is no tenting of the skin. Capillary reflex less than 2 seconds. HEAD: Normocephalic atraumatic. EARS: External auditory canals clear, tympanic membranes pearly forbes without erythema or effusion bilaterally. EYES: Pupils equal round and reactive to light and accommodation. Conjunctivae without injection, sclerae without icterus. Extraocular movements intact. NOSE: Patent, turbinates without inflammation or discharge. MOUTH: Mucous membranes moist. Pharynx without erythema or exudate. Uvula midline. Airway patent. Tongue does not deviate. NECK: Supple without nuchal rigidity. No lymphadenopathy. No thyromegaly. Cervical spine is nontender. No JVD. HEART: Regular rate and rhythm without murmurs gallops or rubs. LUNGS: Clear to auscultation bilaterally without wheezes, rales or rhonchi. No dullness to percussion. No retractions or accessory muscle use. ABDOMEN: Positive bowel sounds x 4. Normal tympanic percussion. Soft, protuberant, obese, nontender, without masses or organomegaly. Leach sign negative. No guarding or rebound tenderness. MUSCULOSKELETAL: No muscle atrophy, erythema, noted. NEURO: Patient was alert and oriented to person place and time. Normal sensation to light and sharp touch. No focal neurological deficits. Medical Decision & Procedures Laboratory Results 06/26/17 21:54 Red Blood Count 4.84, Mean Corpuscular Volume 88.6, Mean Corpuscular Hemoglobin 30.0, Mean Corpuscular Hemoglobin Concent 33.8, Mean Platelet Volume 9.7, Neutrophils (%) (Auto) 75.6, Lymphocytes (%) (Auto) 11.0, Monocytes (%) (Auto) 11.0, Eosinophils (%) (Auto) 1.5, Basophils (%) (Auto) 0.4, Neutrophils # (Auto ) 6.09, Lymphocytes # (Auto) 0.89, Monocytes # (Auto) 0.89, Eosinophils # (Auto ) 0.12, Basophils # (Auto) 0.03 06/26/17 21:54 Test 06/26/17 21:54 06/26/17 21:59 06/27/17 00:17 White Blood Count 8.06 K/uL (4.8-10.8) Red Blood Count 4.84 M/uL (4.7-6.1) Hemoglobin 14.5 g/dL (14.0-18.0) Hematocrit 42.9 % (42-52) Mean Corpuscular Volume 88.6 fL (80-100) Mean Corpuscular Hemoglobin 30.0 pg (25-34) Mean Corpuscular Hemoglobin Concent 33.8 g/dl (32-36) Platelet Count 227 K/uL (130-400) Mean Platelet Volume 9.7 fL (7.4-10.4) Neutrophils (%) (Auto) 75.6 % Lymphocytes (%) (Auto) 11.0 % Monocytes (%) (Auto) 11.0 % Eosinophils (%) (Auto) 1.5 % Basophils (%) (Auto) 0.4 % Neutrophils # (Auto) 6.09 K/uL (1.4-6.5) Lymphocytes # (Auto) 0.89 K/uL (1.2-3.4) Monocytes # (Auto) 0.89 K/uL (0.11-0.59) Eosinophils # (Auto) 0.12 K/uL (0-0.5) Basophils # (Auto) 0.03 K/uL (0-0.2) RDW Standard Deviation 40.9 fL (36.4-46.3) RDW Coefficient of Variation 12.7 % (11.5-14.5) Immature Granulocyte % (Auto) 0.5 % Immature Granulocyte # (Auto) 0.04 K/uL (0.00-0.02) Anion Gap 7.0 mmol/L (3-11) Est Creatinine Clear Calc Drug Dose 142.4 ml/min Estimated GFR () 92.9 Estimated GFR (Non- 80.2 BUN/Creatinine Ratio 14.4 (10-20) Calcium Level 9.7 mg/dl (8.5-10.1) Total Bilirubin 0.5 mg/dl (0.2-1) Direct Bilirubin < 0.1 mg/dl (0-0.2) Aspartate Amino Transf (AST/SGOT) 16 U/L (15-37) Alanine Aminotransferase (ALT/SGPT) 38 U/L (12-78) Alkaline Phosphatase 111 U/L (45-117) Troponin I < 0.015 ng/ml (0-0.045) Total Protein 7.5 gm/dl (6.4-8.2) Albumin 3.9 gm/dl (3.4-5.0) Bedside D-Dimer > 450 ng/mlFEU (0-450) Bedside Troponin I < 0.030 ng/ml (0-0.045) Medications Administered Medications (Trade) Dose Ordered Sig/Debra Route Start Time Stop Time Status Last Admin Dose Admin Ketorolac Tromethamine (Toradol Inj) 30 mg NOW STAT IV 06/27/17 01:59 06/27/17 02:00 DC 06/27/17 02:10 30 MG ED Course Prior records/ancillary studies reviewed. Triage Nursing notes reviewed. Additional history obtained from the family. The patient's history was concerning for respiratory difficulties. Differential diagnosis: Etiologies such as infections, reactive airway disease, pneumonia, pneumothorax , COPD, CHF, cardiac ischemia, pulmonary embolism, musculoskeletal, gastrointestinal, as well as others were entertained. Physical examination: As above. ER treatment provided: Heparin written by medicine On reassessment the patient felt better. Diagnostic interpretation by me: The electrocardiogram was normal sinus, right bundle branch block, no acute ST- T wave changes. Impression right bundle branch block interpreted by myself The labs revealed elevated d-dimer. Negative troponin Imaging studies: Chest x-ray as above. (CHEST FOR PE) ANGIO WITH CT DOSE: 763.28 mGy.cm HISTORY: Chest pain dyspnea TECHNIQUE: Multiaxial CT images of the chest were performed following the intravenous administration of contrast to evaluate the pulmonary arteries. Maximal intensity projection images were also obtained. A dose lowering technique was utilized adhering to the principles of ALARA. COMPARISON STUDY: None FINDINGS: Limited study due to artifact due to patient body habitus. No last, this study confirms the presence of acute pulmonary emboli. These primarily are in the right middle and right lower lobe pulmonary arterial distributions. There are third order pulmonary emboli involving the left lung base. Scattered areas of nonspecific pleural thickening are identified over the lung bases. Mild nonspecific interstitial changes seen in the lungs bilaterally. Evaluation of mediastinal and hilar adenopathy is problematic again due to the artifact present. Moderate adenopathy and no left appears to be present measuring up to 2 cm. There is possibility of a central pulmonary embolus involving the proximal left lower lobe pulmonary vasculature. Limited evaluation the upper abdomen is considered unremarkable. IMPRESSION: 1. Study is positive for bilateral acute pulmonary emboli more prominent in the right middle and right lower lobe regions. 2. Moderate mediastinal and hilar adenopathy. 3. Interstitial and scattered foci of pleural thickening in the mid to lower lung regions bilaterally. 4. Follow-up scanning at a later date is recommended to ensure complete resolution of the pleural based and parenchymal basilar nodularity, and foci of pleural thickening. The above report was generated using voice recognition software. It may contain grammatical, syntax or spelling errors. Electronically signed by: García Oconnor M.D. Consultation: A consultation was placed with the Dr. Yi, hospitalist. The case was discussed and diagnostics were reviewed. The patient was evaluated in the ER for further treatment. This appears to be consistent with PE. Patient had multiple PEs. He'll be evaluated by medicine for possible admission. Hypercoagulable workup was ordered and heparin was deferred to medicine pending extremity ultrasounds. By the evaluation outlined above emergent etiologies such as CHF, cardiac ischemia , reactive airway disease, pneumonia, pneumothorax, musculoskeletal, serious bacterial infections, as well as others were deemed relatively unlikely. Patient was not hypoxic. The pt informed about the findings as listed above. All questions were answered and pleased with the treatment. Case reviewed with my attending The chart was completed utilizing [employer] voice recognition software. Grammatical errors, random word insertions, pronoun errors, and incomplete sentences are an occassional consequence of this system due to software limitations, ambient noise, and hardware issues. Any formal questions or concerns about the content, text, or information contained within the body of this dictation should be directly addressed to the physician dermatology physician assistant for clarification. Medical Decision As above Medication Reconcilliation Current Medication List: was personally reviewed by me Blood Pressure Screening Patient's blood pressure: Normal blood pressure Impression Primary Impression: Pulmonary emboli Departure Information Dispostion Still a Patient Condition FAIR Referrals Ruba Wright (PCP) Forms HOME CARE DOCUMENTATION FORM, IMPORTANT VISIT INFORMATION Patient Instructions [facility] Problem Qualifiers Primary Impression: Pulmonary emboli Pulmonary embolism type: other Chronicity: acute Acute cor pulmonale presence: without acute cor pulmonale Qualified Codes: I26.99 - Other pulmonary embolism without acute cor pulmonale
[2017-06-27] MEDS: ZINC SULFATE 220 MG CAP PO SCH (07:21)
[2017-06-27] MEDS: CHOLECALCIFEROL 1000 INTER.UNIT TAB PO SCH (07:21)
[2017-06-27] MEDS: ALLOPURINOL 300 MG TAB PO SCH (07:21)
[2017-06-27] MEDS: ASCORBIC ACID 500 MG TAB PO SCH (07:22)
[2017-06-27] MEDS: LISINOPRIL 10 MG TAB PO SCH (07:22)
[2017-06-27] MEDS: MAGNESIUM OXIDE 400 MG TAB PO SCH ×2 (07:22→20:23)
[2017-06-27] MEDS: IPRATROPIUM BROMIDE NEB SOLN 0.02% 2.5 ML VIAL INH SCH ×3 (07:27→20:40)
[2017-06-27] MEDS: LEVALBUTEROL 1.25MG/0.5ML NEB INH SCH ×3 (07:27→20:40)
--- NOTE | 2017-06-27 07:55 | DIAGNOSTIC IMAGING REPORT ---
ULTRASOUND BILATERAL LOWER EXTREMITY VENOUS CLINICAL HISTORY: Lower extremity edema. COMPARISON STUDY: No priors. TECHNIQUE: Real-time, grayscale, and color Doppler sonography of the deep veins of the right and left lower extremity was performed from the inguinal crease to the calf. Compression and augmentation were utilized. FINDINGS: There is no sonographic evidence of deep venous thrombosis identified in the right or left lower extremity. The common femoral, superficial femoral, and popliteal veins are patent and normally compressible bilaterally. The greater saphenous vein and the profunda femoris vein at the junction with the common femoral vein are clear in both legs. The visualized calf veins are patent bilaterally. IMPRESSION: There is no sonographic evidence of deep venous thrombosis identified in the right or left lower extremity. Electronically signed by: Narciso Alvarez M.D. 06/27/2017 7:54 AM Dictated Date/Time: 06/27/2017 7:53 AM
--- NOTE | 2017-06-27 08:00 | NUR ---
Pt currently resting in bed. VS stable. Heparin drip infusing at 2200 units/hr with PTT due at 0920. Currently states pain is with deep breathing but declined pain medication. Right foot with steri strips intact and slight swelling to foot. Self positioned in bed.
[2017-06-27] MEDS ORDERED: NON-FORMULARY MEDICATION (Cinnamon 1,000 MG) PO SCH (09:00)
--- NOTE | 2017-06-27 09:00 | NUR ---
Pt full admission at this time.
--- NOTE | 2017-06-27 09:30 | DIAGNOSTIC IMAGING REPORT ---
ULTRASOUND BILATERAL UPPER EXTREMITY VENOUS CLINICAL HISTORY: Pulmonary embolus. COMPARISON STUDY: No priors. TECHNIQUE: Real-time, grayscale, and color Doppler sonography of the deep veins of the right and left upper extremity is performed. Compression and augmentation were utilized. FINDINGS: There is no sonographic evidence of deep venous thrombosis identified in the right or left upper extremity. The internal jugular, axillary, and brachial veins are patent and normally compressible bilateral. Normal venous waveforms and augmentation are seen within the right left subclavian brain. The cephalic and basilic veins are clear in both arm. The visualized radial and ulnar veins are patent bilaterally. IMPRESSION: There is no sonographic evidence of deep venous thrombosis identified in the right or left upper extremity. Electronically signed by: Narciso Alvarez M.D. 06/27/2017 9:29 AM Dictated Date/Time: 06/27/2017 9:27 AM
[2017-06-27 09:36] LABS: PTT PATIENT 39.5 SECONDS (21.0-31.0)
--- NOTE | 2017-06-27 14:35 | NUR ---
Case Management: Received discharge planning referral on this pt. Met with him in his room. Pt lives with his spouse, his father (who was at bedside) and his 18yr old dgt. Home is 2 story but he states he can stay on 1 level. Pt has surgery to his R foot on 06/01/17. He has a boot on his foot that keeps the weight only on his heel. He thinks he is to get new type of boot this week. Pt is not able to drive at this time but does. No discharge needs identified as of this visit.
--- NOTE | 2017-06-27 15:06 | Family Medicine Progress Note ---
Progress Note Date of Service Jun 27, 2017. Subjective Pt evaluation today including: conversation w/ patient, physical exam, chart review, lab review Pain: chest pain improved; painful to take a deep breath PO Intake: tolerating Voiding: no voiding problems Telemetry: Sinus 70s-90s Reports improved chest pain but still having sob and pain when taking a deep breath. associated with fatigue. Constitutional: No fever, No chills Respiratory: + shortness of breath Cardiovascular: No chest pain Abdomen: No pain, No nausea, No vomiting, No diarrhea, No constipation Musculoskeletal: + problem reported (L sided intrascapular back pain) Male : No dysuria Medications Current Inpatient Medications Medications (Trade) Dose Ordered Sig/Debra Route Start Time Stop Time Status Last Admin Dose Admin Ioversol (Optiray 320) 100 ml UD PRN IV 06/26/17 22:45 06/30/17 22:44 Acetaminophen (Tylenol Tab) 650 mg Q4H PRN PO 06/27/17 03:00 07/27/17 02:59 Allopurinol (Zyloprim Tab) 300 mg QAM PO 06/27/17 09:00 07/27/17 08:59 06/27/17 07:21 300 MG Lisinopril (Zestril Tab) 10 mg QAM PO 06/27/17 09:00 07/27/17 08:59 06/27/17 07:22 10 MG Magnesium Oxide (Mag-Ox Tab) 400 mg BID PO 06/27/17 09:00 07/27/17 08:59 06/27/17 07:22 400 MG Ascorbic Acid (Vitamin C Tab) 1,000 mg QAM PO 06/27/17 09:00 07/27/17 08:59 06/27/17 07:22 1,000 MG Cholecalciferol (Vitamin D Tab) 2,000 inter.unit QAM PO 06/27/17 09:00 07/27/17 08:59 06/27/17 07:21 2,000 INTER.UNIT Zinc Sulfate (Zinc Sulfate Cap) 220 mg QAM PO 06/27/17 09:00 07/27/17 08:59 06/27/17 07:21 220 MG Ondansetron HCl (Zofran Odt) 8 mg Q6H PRN PO 06/27/17 03:00 07/27/17 02:59 Tramadol HCl (Ultram Tab) 100 mg Q4H PRN PO 06/27/17 03:00 07/27/17 02:59 06/27/17 04:40 100 MG Tramadol HCl (Ultram Tab) 50 mg Q4H PRN PO 06/27/17 03:00 07/27/17 02:59 Ipratropium [place] (Atrovent 0.02% 0.5MG/2.5ML Neb) 0.5 mg Q6R INH 06/27/17 03:00 07/27/17 02:59 06/27/17 07:27 0.5 MG Levalbuterol (Xopenex 1.25MG/ 0.5ML Neb) 1.25 mg Q6R INH 06/27/17 03:00 07/27/17 02:59 06/27/17 07:27 1.25 MG Ipratropium [place] (Atrovent 0.02% 0.5MG/2.5ML Neb) 0.5 mg Q2H PRN INH 06/27/17 03:00 07/27/17 02:59 Levalbuterol (Xopenex 1.25MG/ 0.5ML Neb) 1.25 mg Q2H PRN INH 06/27/17 03:00 07/27/17 02:59 Heparin Sodium/ Dextrose 500 ml @ 54 mls/hr Q9H16M PRN IV 06/27/17 03:00 07/27/17 02:59 06/27/17 10:41 54 MLS/HR Miscellaneous (Iv Fluids Completed) 1 ea PRN PRN N/A 06/27/17 04:00 06/27/18 03:59 Objective Vital Signs Date Time Temp Pulse Resp B/P (MAP) Pulse Ox O2 Delivery O2 Flow Rate FiO2 06/27/17 12:00 Room Air 06/27/17 11:50 36.6 77 18 108/71 (83) 91 06/27/17 08:00 Room Air 06/27/17 07:50 71 92 Room Air 06/27/17 07:34 36.9 74 18 104/69 (81) 92 06/27/17 04:00 95 Room Air 06/27/17 03:36 36.7 85 18 132/84 95 Room Air 06/27/17 03:21 36.5 70 18 132/63 94 06/27/17 03:21 36.5 70 18 132/63 94 Room Air 06/27/17 02:16 75 18 122/65 93 Room Air 06/27/17 01:20 75 06/27/17 00:41 76 20 130/72 95 Room Air 06/26/17 22:36 79 20 116/64 93 Room Air 06/26/17 21:45 94 Room Air 06/26/17 21:45 93 Room Air 06/26/17 21:27 80 06/26/17 21:27 94 Room Air 06/26/17 21:20 97 Room Air 06/26/17 21:13 36.5 85 19 155/87 95 Room Air Physical Exam General Appearance: no apparent distress Eyes: normal inspection Neck: supple Respiratory/Chest: + decreased breath sounds, + wheezing (expiratory) Cardiovascular: regular rate, rhythm, no murmur Abdomen: normal bowel sounds, non tender, soft Extremities: non-tender, + pertinent finding (1+ pretibial edema bilaterally) Neurologic/Psychiatric: alert, oriented x 3 Laboratory Results 06/26/17 21:54 Red Blood Count 4.84, Mean Corpuscular Volume 88.6, Mean Corpuscular Hemoglobin 30.0, Mean Corpuscular Hemoglobin Concent 33.8, Mean Platelet Volume 9.7, Neutrophils (%) (Auto) 75.6, Lymphocytes (%) (Auto) 11.0, Monocytes (%) (Auto) 11.0, Eosinophils (%) (Auto) 1.5, Basophils (%) (Auto) 0.4, Neutrophils # (Auto ) 6.09, Lymphocytes # (Auto) 0.89, Monocytes # (Auto) 0.89, Eosinophils # (Auto ) 0.12, Basophils # (Auto) 0.03 06/26/17 21:54 Test 06/26/17 21:54 06/26/17 21:59 06/27/17 00:17 06/27/17 09:11 White Blood Count 8.06 K/uL (4.8-10.8) Red Blood Count 4.84 M/uL (4.7-6.1) Hemoglobin 14.5 g/dL (14.0-18.0) Hematocrit 42.9 % (42-52) Mean Corpuscular Volume 88.6 fL (80-100) Mean Corpuscular Hemoglobin 30.0 pg (25-34) Mean Corpuscular Hemoglobin Concent 33.8 g/dl (32-36) Platelet Count 227 K/uL (130-400) Mean Platelet Volume 9.7 fL (7.4-10.4) Neutrophils (%) (Auto) 75.6 % Lymphocytes (%) (Auto) 11.0 % Monocytes (%) (Auto) 11.0 % Eosinophils (%) (Auto) 1.5 % Basophils (%) (Auto) 0.4 % Neutrophils # (Auto) 6.09 K/uL (1.4-6.5) Lymphocytes # (Auto) 0.89 K/uL (1.2-3.4) Monocytes # (Auto) 0.89 K/uL (0.11-0.59) Eosinophils # (Auto) 0.12 K/uL (0-0.5) Basophils # (Auto) 0.03 K/uL (0-0.2) RDW Standard Deviation 40.9 fL (36.4-46.3) RDW Coefficient of Variation 12.7 % (11.5-14.5) Immature Granulocyte % (Auto) 0.5 % Immature Granulocyte # (Auto) 0.04 K/uL (0.00-0.02) Anion Gap 7.0 mmol/L (3-11) Est Creatinine Clear Calc Drug Dose 142.4 ml/min Estimated GFR () 92.9 Estimated GFR (Non- 80.2 BUN/Creatinine Ratio 14.4 (10-20) Calcium Level 9.7 mg/dl (8.5-10.1) Total Bilirubin 0.5 mg/dl (0.2-1) Direct Bilirubin < 0.1 mg/dl (0-0.2) Aspartate Amino Transf (AST/SGOT) 16 U/L (15-37) Alanine Aminotransferase (ALT/SGPT) 38 U/L (12-78) Alkaline Phosphatase 111 U/L (45-117) Troponin I < 0.015 ng/ml (0-0.045) Total Protein 7.5 gm/dl (6.4-8.2) Albumin 3.9 gm/dl (3.4-5.0) Bedside D-Dimer > 450 ng/mlFEU (0-450) Bedside Troponin I < 0.030 ng/ml (0-0.045) Activated Partial Thromboplast Time 39.5 SECONDS (21.0-31.0) Partial Thromboplastin Ratio 1.5 Assessment and Plan 47y/oM with hx of HTN and gout who presented with worsening sob. Found to have bilateral PE in the setting of R ankle/foot surgery in early May (reported being less ambulatory since surgery). Of note: mother from acute PE. Bilateral acute pulmonary emboli, greatest right middle and right lower lobe - Bilateral LE venous Doppler - negative - On heparin infusion per protocol - Discussed oral anticoagulant options for discharge including risk, benefits and cost: Xarelto, Eliquis, Warfarin - pt prefers novel anticoagulants - Tramadol 50mg PO PRN for pain - Acetaminophen 600mg PO Q6H PRN - Hypercoagulable workup pending Pleural thickening and nodules in bilateral lung bases - likely reactive versus infectious vs inflammatory - Patient will need either repeat imaging and/or follow-up in the outpatient setting Gout - Continue allopurinol 300 mg PO QAM Hypertension - Continue lisinopril 10 mg by mouth daily - Hold fish oil and avoid NSAIDs while on anticoagulation - Hold triamterene/HCTZ DVT prophylaxis: Heparin Code: Full resuscitation Dispo: pending determination of insurance coverage of oral anticoagulation Resident Involvement: Resident Care Provided Care Provided: Adult Hospital Medicine History Resident Physician Supervision Note: I was present with Dr. Olivo during the history and exam. I discussed the case with the resident and agree with the findings and plan as documented in the note. Any exceptions or clarifications are listed here. Pt reports mildly improved right mid-back pain and shortness of breath, the latter of which still exacerbates with mild activity. Tolerating AC well, interested in DOAC. Concerned re: discharge 2/2 FHx of fatal PE in mother. Educated re: course of disease and supportive care. Reports no KATZ, lightheadedness, productive cough, fever. General Appearance: no apparent distress, obese Respiratory: chest non-tender, no respiratory distress, decreased breath sounds Cardiovascular: normal peripheral pulses, regular rate, rhythm, no murmur Gastrointestinal: normal bowel sounds, non tender, soft, no organomegaly Assessment/Plan 47 y/o male h/o HTN, gout, FHx of coagulopathy (FVL) p/w SOB w/ b/l PE Bilateral PE - PESI 1 - transition from heparin to DOAC in AM - tramadol, APAP for pain - AC evaluation pending Pleural thickenign and b/l basilar nodularity - repeat imaging as outpatient to establish resolution HTN - continue lisinopril. holding HCTZ/triamterene Gout - continue allopurinol
[2017-06-27 17:16] LABS: PTT PATIENT 55.3 SECONDS (21.0-31.0)
--- NOTE | 2017-06-27 17:28 | NUR ---
Resting in bed with family at bedside. Denies any need for pain medication this shift. Heparin drip therapeutic at this time rate 2700 units/hr. PTT due 06/28/17 with am lab
--- NOTE | 2017-06-27 20:00 | NUR ---
A: Patient was transferred from [facility] via hospital bed. Patient is alert and oriented x 4. Patient was oriented to room and call jaeger system. Will continue to monitor.
--- NOTE | 2017-06-27 20:00 | NUR ---
A: PT was transferred to room 250-2 via bed family in room and aware, RN report given to Razia, receiving RN aware of heparin infusion of 54ml/hr and recheck in AM.
[2017-06-28] MEDS: HEPARIN 25,000 UNIT/500ML D5W 500 ML IV PRN (01:29)
[2017-06-28] MEDS: LEVALBUTEROL 1.25MG/0.5ML NEB INH SCH ×2 (03:00→07:12)
[2017-06-28] MEDS: IPRATROPIUM BROMIDE NEB SOLN 0.02% 2.5 ML VIAL INH SCH ×2 (03:00→07:12)
[2017-06-28] MEDS: TRAMADOL HCL 50 MG TAB PO PRN ×2 (03:11→10:39)
[2017-06-28 07:12] VITALS: PULSE 76; O2SAT 92
[2017-06-28 07:21] LABS: BASO % 0.2 %; BASO ABS # 0.02 K/uL (0-0.2); EOS % 0.5 %; EOS ABS # 0.05 K/uL (0-0.5); HEMATOCRIT 39.5 % (42-52); HEMOGLOBIN 13.2 g/dL (14.0-18.0); IG# 0.06 K/uL (0.00-0.02); LYMPH % 6.8 %; LYMPH ABS # 0.75 K/uL (1.2-3.4); MEAN CELL VOLUME 88.4 fL (80-100); MEAN CORPUSCULAR HEMOGLOBIN 29.5 pg (25-34); MEAN CORPUSCULAR HGB CONC 33.4 g/dl (32-36); MONO % 8.7 %; MONO ABS # 0.96 K/uL (0.11-0.59); NEUT % 83.3 %; PLATELET COUNT 231 K/uL (130-400); RED CELL DISTRIBUTION WIDTH CV 12.9 % (11.5-14.5); RED CELL DISTRIBUTION WIDTH SD 41.3 fL (36.4-46.3); WHITE BLOOD COUNT 11.04 K/uL (4.8-10.8)
[2017-06-28 07:35] LABS: PTT PATIENT 57.7 SECONDS (21.0-31.0)
[2017-06-28 07:43] VITALS: BP 146/88; PULSE 87; TEMP 36.8; O2SAT 91
[2017-06-28 08:00] LABS: CREATININE 0.92 mg/dl (0.60-1.40)
[2017-06-28 08:01] LABS: ALBUMIN 3.5 gm/dl (3.4-5.0); CALCIUM 9.3 mg/dl (8.5-10.1); POTASSIUM 3.9 mmol/L (3.5-5.1)
[2017-06-28 08:03] LABS: TOTAL PROTEIN 7.1 gm/dl (6.4-8.2)
[2017-06-28] MEDS: MAGNESIUM OXIDE 400 MG TAB PO SCH (08:23)
[2017-06-28] MEDS: ALLOPURINOL 300 MG TAB PO SCH (08:23)
[2017-06-28] MEDS: CHOLECALCIFEROL 1000 INTER.UNIT TAB PO SCH (08:23)
[2017-06-28] MEDS: LISINOPRIL 10 MG TAB PO SCH (08:23)
[2017-06-28] MEDS: ZINC SULFATE 220 MG CAP PO SCH (08:24)
[2017-06-28] MEDS: ASCORBIC ACID 500 MG TAB PO SCH (08:24)
--- NOTE | 2017-06-28 08:25 | NUR ---
Case management note. Pt transferred to room 250-2. Case management to follow with pt.
--- NOTE | 2017-06-28 08:31 | Clinical Documentation Query ---
BRITTNEE Caro : CLINICAL DOCUMENTATION QUERY Patient is a 47 year old male admitted for treatment of acute bilateral PE in the setting of right ankle/foot surgery 06/12. Bilateral lower and upper extremity doppler ultrasounds negative for acute process. He is being treated with IV heparin with hypercoagulable workup pending. To avoid possible confusion at time of coding, consider explicit documentation of your clinical opinion regarding whether or not you feel the bilateral pulmonary emboli are a complication of care (r/t surgery) or not. Thank you. In your clinical opinion is this patient being managed for: ( ) Postoperative bilateral PE, a complication of care ( ) Incidental postoperative bilateral PE, not a complication of care ( ) Not Agree ( ) Other explanation of clinical findings (Please Explain) ( ) Unable to determine (Please Define) ( ) Need to Discuss The medical record reflects the following clinical findings, treatment, and risk factors. Clinical Indicators: As above Treatment: IV heparin, hypercoagulable workup Risk Factors: Recent surgery Please clarify and document your clinical opinion in the progress notes and discharge summary. Terms such as "probable", "suspected", "likely", "questionable", "possible", or "still to be ruled out" are acceptable. IF IN AGREEMENT, YOU MUST DOCUMENT ABOVE DIAGNOSTIC STATEMENT IN DAILY PROGRESS NOTES AND DISCHARGE SUMMARY. This document is not part of the patient's record. Thank You, Mason Gonzales RN [phone]
--- NOTE | 2017-06-28 09:20 | Family Medicine Progress Note ---
Progress Note Date of Service Jun 28, 2017. Subjective Pt evaluation today including: conversation w/ patient, physical exam, chart review, lab review Pain: improved chest pain; R sided back pain PO Intake: tolerating Voiding: no voiding problems This AM Mr. Velasquez reports resolved chest pain and improved pain with inspiration. However he reports R sided rib/back pain. Sob has also improved. Constitutional: No fever, No chills Respiratory: + shortness of breath Cardiovascular: No chest pain Abdomen: No pain, No nausea, No vomiting, No diarrhea, No constipation Musculoskeletal: + problem reported (R sided rib/back pain) Male : No dysuria Medications Current Inpatient Medications Medications (Trade) Dose Ordered Sig/Debra Route Start Time Stop Time Status Last Admin Dose Admin Ioversol (Optiray 320) 100 ml UD PRN IV 06/26/17 22:45 06/30/17 22:44 Acetaminophen (Tylenol Tab) 650 mg Q4H PRN PO 06/27/17 03:00 07/27/17 02:59 Allopurinol (Zyloprim Tab) 300 mg QAM PO 06/27/17 09:00 07/27/17 08:59 06/28/17 08:23 300 MG Lisinopril (Zestril Tab) 10 mg QAM PO 06/27/17 09:00 07/27/17 08:59 06/28/17 08:23 10 MG Magnesium Oxide (Mag-Ox Tab) 400 mg BID PO 06/27/17 09:00 07/27/17 08:59 06/28/17 08:23 400 MG Ascorbic Acid (Vitamin C Tab) 1,000 mg QAM PO 06/27/17 09:00 07/27/17 08:59 06/28/17 08:24 1,000 MG Cholecalciferol (Vitamin D Tab) 2,000 inter.unit QAM PO 06/27/17 09:00 07/27/17 08:59 06/28/17 08:23 2,000 INTER.UNIT Zinc Sulfate (Zinc Sulfate Cap) 220 mg QAM PO 06/27/17 09:00 07/27/17 08:59 06/28/17 08:24 220 MG Ondansetron HCl (Zofran Odt) 8 mg Q6H PRN PO 06/27/17 03:00 07/27/17 02:59 Tramadol HCl (Ultram Tab) 100 mg Q4H PRN PO 06/27/17 03:00 07/27/17 02:59 06/28/17 03:11 100 MG Tramadol HCl (Ultram Tab) 50 mg Q4H PRN PO 06/27/17 03:00 07/27/17 02:59 Ipratropium [place] (Atrovent 0.02% 0.5MG/2.5ML Neb) 0.5 mg Q6R INH 06/27/17 03:00 07/27/17 02:59 06/28/17 07:12 0.5 MG Levalbuterol (Xopenex 1.25MG/ 0.5ML Neb) 1.25 mg Q6R INH 06/27/17 03:00 07/27/17 02:59 06/28/17 07:12 1.25 MG Ipratropium [place] (Atrovent 0.02% 0.5MG/2.5ML Neb) 0.5 mg Q2H PRN INH 06/27/17 03:00 07/27/17 02:59 Levalbuterol (Xopenex 1.25MG/ 0.5ML Neb) 1.25 mg Q2H PRN INH 06/27/17 03:00 07/27/17 02:59 Heparin Sodium/ Dextrose 500 ml @ 54 mls/hr Q9H16M PRN IV 06/27/17 03:00 07/27/17 02:59 06/28/17 01:29 54 MLS/HR Miscellaneous (Iv Fluids Completed) 1 ea PRN PRN N/A 06/27/17 04:00 06/27/18 03:59 Objective Vital Signs Date Time Temp Pulse Resp B/P (MAP) Pulse Ox O2 Delivery O2 Flow Rate FiO2 06/28/17 07:43 36.8 87 20 146/88 (107) 91 CPAP 06/28/17 07:12 76 14 92 Room Air 06/28/17 00:00 Room Air 06/27/17 20:55 37.0 60 14 90 06/27/17 20:40 60 14 90 Room Air 06/27/17 20:00 37.0 60 14 90 06/27/17 16:00 Room Air 06/27/17 15:17 37.0 76 20 111/75 (87) 90 Room Air 06/27/17 15:09 74 14 91 Room Air 06/27/17 12:00 Room Air 06/27/17 11:50 36.6 77 18 108/71 (83) 91 Physical Exam General Appearance: no apparent distress Eyes: normal inspection, sclerae normal Respiratory/Chest: lungs clear, + decreased breath sounds (improved slightly from yesterdya) Cardiovascular: regular rate, rhythm, no JVD, no murmur Abdomen: normal bowel sounds, non tender, soft Extremities: non-tender, + pertinent finding (1+ bilateral pre-tibial edema; Brace R foot/ankle ) Neurologic/Psychiatric: alert, oriented x 3 Laboratory Results 06/28/17 06:19 Red Blood Count 4.47, Mean Corpuscular Volume 88.4, Mean Corpuscular Hemoglobin 29.5, Mean Corpuscular Hemoglobin Concent 33.4, Mean Platelet Volume 10.0, Neutrophils (%) (Auto) 83.3, Lymphocytes (%) (Auto) 6.8, Monocytes (%) (Auto) 8.7, Eosinophils (%) (Auto) 0.5, Basophils (%) (Auto) 0.2, Neutrophils # (Auto) 9.20, Lymphocytes # (Auto) 0.75, Monocytes # (Auto) 0.96, Eosinophils # (Auto) 0.05, Basophils # (Auto) 0.02 06/28/17 06:19 Test 06/28/17 06:19 White Blood Count 11.04 K/uL (4.8-10.8) Red Blood Count 4.47 M/uL (4.7-6.1) Hemoglobin 13.2 g/dL (14.0-18.0) Hematocrit 39.5 % (42-52) Mean Corpuscular Volume 88.4 fL (80-100) Mean Corpuscular Hemoglobin 29.5 pg (25-34) Mean Corpuscular Hemoglobin Concent 33.4 g/dl (32-36) Platelet Count 231 K/uL (130-400) Mean Platelet Volume 10.0 fL (7.4-10.4) Neutrophils (%) (Auto) 83.3 % Lymphocytes (%) (Auto) 6.8 % Monocytes (%) (Auto) 8.7 % Eosinophils (%) (Auto) 0.5 % Basophils (%) (Auto) 0.2 % Neutrophils # (Auto) 9.20 K/uL (1.4-6.5) Lymphocytes # (Auto) 0.75 K/uL (1.2-3.4) Monocytes # (Auto) 0.96 K/uL (0.11-0.59) Eosinophils # (Auto) 0.05 K/uL (0-0.5) Basophils # (Auto) 0.02 K/uL (0-0.2) RDW Standard Deviation 41.3 fL (36.4-46.3) RDW Coefficient of Variation 12.9 % (11.5-14.5) Immature Granulocyte % (Auto) 0.5 % Immature Granulocyte # (Auto) 0.06 K/uL (0.00-0.02) Prothrombin Time 11.0 SECONDS (9.0-12.0) Prothromb Time International Ratio 1.0 (0.9-1.1) Activated Partial Thromboplast Time 57.7 SECONDS (21.0-31.0) Partial Thromboplastin Ratio 2.2 Anion Gap 8.0 mmol/L (3-11) Est Creatinine Clear Calc Drug Dose 157.1 ml/min Estimated GFR () 112.8 Estimated GFR (Non- 97.3 BUN/Creatinine Ratio 24.5 (10-20) Calcium Level 9.3 mg/dl (8.5-10.1) Magnesium Level 1.9 mg/dl (1.8-2.4) Total Bilirubin 0.9 mg/dl (0.2-1) Direct Bilirubin 0.1 mg/dl (0-0.2) Aspartate Amino Transf (AST/SGOT) 12 U/L (15-37) Alanine Aminotransferase (ALT/SGPT) 31 U/L (12-78) Alkaline Phosphatase 97 U/L (45-117) Total Protein 7.1 gm/dl (6.4-8.2) Albumin 3.5 gm/dl (3.4-5.0) Assessment and Plan 47y/oM with hx of HTN and gout who presented with worsening sob. Found to have bilateral PE in the setting of R ankle/foot surgery in early May (reported being less ambulatory since surgery). Of note: mother from acute PE. Bilateral acute pulmonary emboli, greatest right middle and right lower lobe - Bilateral LE venous Doppler - negative - On heparin infusion will transition to NOAC this AM - Discussed oral anticoagulant options for discharge including risk, benefits and cost: Xarelto, Eliquis, Warfarin - pt prefers novel anticoagulants - Tramadol 50mg PO PRN for pain - Acetaminophen 600mg PO Q6H PRN - Hypercoagulable workup pending Pleural thickening and nodules in bilateral lung bases - likely reactive versus infectious vs inflammatory - Patient will need either repeat imaging and/or follow-up in the outpatient setting Gout - Continue allopurinol 300 mg PO QAM Hypertension - Continue lisinopril 10 mg by mouth daily - Hold fish oil and avoid NSAIDs while on anticoagulation - Hold triamterene/HCTZ DVT prophylaxis: Heparin Code: Full resuscitation Dispo: pending determination of insurance coverage of oral anticoagulation - today Resident Involvement: Resident Care Provided Care Provided: Adult [facility] Medicine Assessment/Plan Resident Physician Supervision Note: I was present with Dr. Olivo during the history and exam. I discussed the case with the resident and agree with the findings and plan as documented in the note. Any exceptions or clarifications are listed here. Pt reports new onset chest pain of the right flank which exacerbates with palpation and direct pressure. Improved pleuritic chest pain and shortness of breath from yesterday. Increased energy/exertional tolerance. CV: S1/S2 nl RRR no MCG RESP: CTAB, improved aeration from previous exam 47 y/o male h/o HTN, gout, FHx of coagulopathy (FVL) p/w SOB w/ b/l PE Bilateral PE - PESI 1 - continue DOAC as noted, lab evaluation for underlying coagulopathy pending at time of discharge Leukocytosis - clinical improvement and afebrile patient, likely inflammatory 2/ 2 PE, repeat CXR w/o concerning findings Pleural thickening and b/l basilar nodularity - repeat imaging as outpatient to establish resolution HTN - continue lisinopril. holding HCTZ/triamterene, to restart as outpatient. Gout - continue allopurinol
--- NOTE | 2017-06-28 09:56 | NUR ---
[facility]: Per request of Dr. Pickering, I contact [facility] and ask the pharmacist to run a "dummy script" to check the copay cost of Xarelto. Pt is eligible to use the $0 coapy card because he has commercial insurance. Addendum: 06/28/17 at 1001 by [employer] The pharmacist is unable to process the Xarelto thru pt's insurance because they do not have his updated insurance info. I will help pt to activate the $0 copay card. Addendum: 06/28/17 at 1359 by [employer] I assist pt w/ activating the $0/month copay card. I also provide him w/ a free 30 day trial offer card for Xarelto just in case he has issues w/ his new insurance. Pt requests a follow up appt w/ Dr. Olivo so I call and arrange an appt for TuesdayJul 08 at 2:30 pm.
--- NOTE | 2017-06-28 10:13 | Clinical Documentation Query ---
Dr. ORTEGA, [facility] : CLINICAL DOCUMENTATION QUERY Patient is a 47 year old male admitted for treatment of acute bilateral PE in the setting of right ankle/foot surgery 06/12. Bilateral lower and upper extremity doppler ultrasounds negative for acute process. He is being treated with IV heparin with hypercoagulable workup pending. To avoid possible confusion at time of coding, consider explicit documentation of your clinical opinion regarding whether or not you feel the bilateral pulmonary emboli are a complication of care (r/t surgery) or not. Thank you. In your clinical opinion is this patient being managed for: ( ) Postoperative bilateral PE, a complication of care ( x ) Incidental postoperative bilateral PE, not a complication of care ( ) Not Agree ( ) Other explanation of clinical findings (Please Explain) ( ) Unable to determine (Please Define) ( ) Need to Discuss The medical record reflects the following clinical findings, treatment, and risk factors. Clinical Indicators: As above Treatment: IV heparin, hypercoagulable workup Risk Factors: Recent surgery Please clarify and document your clinical opinion in the progress notes and discharge summary. Terms such as "probable", "suspected", "likely", "questionable", "possible", or "still to be ruled out" are acceptable. IF IN AGREEMENT, YOU MUST DOCUMENT ABOVE DIAGNOSTIC STATEMENT IN DAILY PROGRESS NOTES AND DISCHARGE SUMMARY. This document is not part of the patient's record. Thank You, Mason Gonzales, RN [phone]
[2017-06-28] MEDS ORDERED: RIVAROXABAN 20 MG TAB PO STA (10:36)
[2017-06-28] MEDS ORDERED: RIVAROXABAN TAB 15 MG TAB PO STA (10:53)
[2017-06-28] MEDS ORDERED: RIVA1TAB4 PO (10:55)
[2017-06-28] MEDS ORDERED: XRL15 PO (10:55)
--- NOTE | 2017-06-28 11:07 | Discharge Instructions ---
Discharge Instructions Date of Service Jun 28, 2017. Admission Reason for Admission: Pulmonary Emboli Discharge Discharge Diagnosis / Problem: bilateral pulmonary emboli Discharge Goals Goal(s): Decrease discomfort, Diagnostic testing, Therapeutic intervention Activity Recommendations Activity Limitations: resume your previous activity . Instructions / Follow-Up Instructions / Follow-Up Mr. Ron pleitez were admitted because you were having shortness of breath and were found to have bilateral pulmonary emboli (blood clots in both lungs) likely from being less ambulatory after your right foot/ankle surgery in May. A work up was also done to consider other conditions that can increase chances of getting blood clots which is pending. Please follow up with your primary care provider within a week who will prescribe remaining dosage of Xarelto and review your hypercoagulability work up which should be back by then Please take Xarelto as prescribed: Xarelto 15mg twice a day for the first 21 days Then we have prescribed you Xarelto 20mg once a day for the remaining 9 days You will need to see your primary care provider who will evaluate you and prescribe you the remaining 5 month course of Xarelto 20mg daily Please avoid taking fish oil or Non-steroidal anti-inflammatory drugs such as aspirin, ibuprofen, aleve, naproxen while on Xarelto Please remember to go to the emergency room if you ever hit your head to rule out head bleeds as being on a blood thinner increases your risk of bleeding If you get any cuts you should apply direct pressure for 1-2 minutes without interruption and go to the nearest emergency room if bleeding does not stop You were also noted to have thinking of the lining of your lungs and some nodules in the bases of your lungs that you need to follow up with your primary care doctor You can continue your home medications for your gout and high blood pressure Current Hospital Diet Patient's current hospital diet: AHA Diet (Heart Healthy) Discharge Diet Recommended Diet: AHA Diet (Heart Healthy) Pending Studies Studies pending at discharge: yes List of pending studies: coagulation work up Medical Emergencies . Who to Call and When: Medical Emergencies: If at any time you feel your situation is an emergency, please call 911 immediately. . Non-Emergent Contact Non-Emergency issues call your: Primary Care Provider Call Non-Emergent contact if: you have a fever, your pain is not controlled . . "Provider Documentation" section prepared by Lisa lOivo. . VTE Core Measure Inpt VTE Proph given/why not?: Other Anticoagulation
--- NOTE | 2017-06-28 12:00 | DIAGNOSTIC IMAGING REPORT ---
CHEST 2 VIEWS ROUTINE CLINICAL HISTORY: 47 years-old Male presenting with chest pain. TECHNIQUE: Portable upright AP view of the chest was obtained. COMPARISON: 06/26/2017. FINDINGS: Mildly low lung volumes with resultant hypoventilatory changes and prominence of the cardiac silhouette and bilateral jorge alberto. Minimal bibasilar bandlike opacities. Small bilateral pleural effusions. No pneumothorax. Degenerative changes of the thoracic spine. Upper abdomen normal. IMPRESSION: 1. Low lung volumes with hypoventilatory changes. 2. Bibasilar atelectasis. 3. Bilateral small pleural effusions. Electronically signed by: Parmjit Alfredo M.D. 06/28/2017 11:59 AM Dictated Date/Time: 06/28/2017 11:58 AM
--- NOTE | 2017-06-28 12:32 | NUR ---
ID: Patient alert and oriented x 4. C/O pain in back. PO pain medication given as ordered. Heparin gtt d/c. Patient possible d/c today. See EMR for full head to toe assessment. Will continue to monitor.
[2017-06-28 13:02] VITALS: BP 146/88; PULSE 87; TEMP 36.8; O2SAT 91
--- NOTE | 2017-06-28 14:59 | Discharge Summary ---
Discharge Summary Date of Service Jun 28, 2017. Discharge Summary Admission Date: Jun 27, 2017 at 08:56 Discharge Date: Jun 28, 2017 Discharge Disposition: Home Principal Diagnosis: Bilateral pulmonary emboli Problems/Secondary Diagnoses: Gout Hypertension Immunizations: Have You Had Influenza Vaccine: Unknown History of Tetanus Vaccine?: Unknown History of Pneumococcal: Unknown History of Hepatitis B Vaccine: Unknown Procedures: Chest/thorax CTA Venous doppler CXR Consultations: none Medication Reconciliation New Medications: Rivaroxaban (Xarelto) 15 Mg Tab 15 MG PO BID for 21 Days, #42 TABS Rivaroxaban (Xarelto) 20 Mg Tab 1 TAB PO DAILY for 9 Days, #9 TAB 0 Refills Continued Medications: Allopurinol (Allopurinol) 300 Mg Tab 300 MG PO QAM Ascorbic Acid (Vitamin C) 1,000 Mg Tab 1000 MG PO QAM Cholecalciferol (Vitamin D3) 2,000 Unit Tab 2000 INTER.UNIT PO QAM Cinnamon (Cinnamon) 500 Mg Cap 1000 MG PO QAM Lisinopril (Lisinopril) 10 Mg Tab 10 MG PO QAM Magnesium Oxide (Mag-Ox) 400 Mg Tab 400 MG PO BID, TAB Triamterene/Hctz (Triamterene/Hctz 37.5-25MG) 1 Tab Tab 1 TAB PO DAILY, TAB Zinc Gluconate (Zinc) 50 Mg Tab 50 MG PO QAM Discontinued Medications: Fish Oil (Medanales-3) 1 Ea Cap 1 CAP PO QPM, CAP Discharge Exam Constitutional: No fever, No chills Respiratory: + shortness of breath Cardiovascular: No chest pain Abdomen: No pain, No nausea, No vomiting, No diarrhea, No constipation Musculoskeletal: + problem reported (R sided rib/back pain) Male : No dysuria General Appearance: no apparent distress Eyes: normal inspection, sclerae normal Respiratory/Chest: lungs clear, + decreased breath sounds (improved slightly from yesterdya) Cardiovascular: regular rate, rhythm, no JVD, no murmur Abdomen: normal bowel sounds, non tender, soft Extremities: non-tender, + pertinent finding (1+ bilateral pre-tibial edema; Brace R foot/ankle ) Neurologic/Psychiatric: alert, oriented x 3 Hospital Course 47y/oM with hx of HTN and gout who presented with worsening sob. Found to have bilateral PE in the setting of R ankle/foot surgery in early May (reported being less ambulatory since surgery). Of note: mother from acute PE. Hypercoagulable work up done - pending. Bilateral acute pulmonary emboli, greatest right middle and right lower lobe - PESI 1 - Bilateral LE venous Doppler - negative - Was on heparin infusion and transitioned to NOAC (Xarelto) prior to discharge - Discussed oral anticoagulant options for discharge including risk, benefits and cost: Xarelto, Eliquis, Warfarin - pt preferred novel anticoagulants - Tramadol 50mg PO PRN for pain - Acetaminophen 600mg PO Q6H PRN - Hypercoagulable workup pending Pleural thickening and nodules in bilateral lung bases - likely reactive versus infectious vs inflammatory - Patient will need either repeat imaging and/or follow-up in the outpatient setting Gout - Continued allopurinol 300 mg PO QAM Hypertension - Continued lisinopril 10 mg by mouth daily - Held fish oil and avoid NSAIDs while on anticoagulation - Held triamterene/HCTZ DVT prophylaxis: On heparin Total Time Spent: Less than 30 minutes This includes examination of the patient, discharge planning, medication reconciliation, and communication with other providers. Discharge Instructions Please refer to the electronic Patient Visit Report (Discharge Instructions) for additional information. Additional Copies To Ruba Wright; Lisa Olivo M.D. Assessment/Plan Resident Physician Supervision Note: I was present with Dr. Olivo during the history and exam. I discussed the case with the resident and agree with the findings and plan as documented in the note. Any exceptions or clarifications are listed here. Pt reports new onset chest pain of the right flank which exacerbates with palpation and direct pressure. Improved pleuritic chest pain and shortness of breath from yesterday. Increased energy/exertional tolerance. CV: S1/S2 nl RRR no MCG RESP: CTAB, improved aeration from previous exam 47 y/o male h/o HTN, gout, FHx of coagulopathy (FVL) p/w SOB w/ b/l PE Bilateral PE - PESI 1 - continue DOAC as noted, lab evaluation for underlying coagulopathy pending at time of discharge Leukocytosis - clinical improvement and afebrile patient, likely inflammatory 2/ 2 PE, repeat CXR w/o concerning findings Pleural thickening and b/l basilar nodularity - repeat imaging as outpatient to establish resolution HTN - continue lisinopril. holding HCTZ/triamterene, to restart as outpatient. Gout - continue allopurinol
[2017-06-28] MEDS ORDERED: LEValbuterol HFA 15GM INHALER INH SCH (18:00)
[2017-06-28] MEDS ORDERED: IPRATROPIUM BROMIDE HFA INHALER INH SCH (18:00)
[2017-07-04 11:40] LABS: ANTICARDIOLIPID AB IGA <11 APL (< = 11)
[2017-08-24] MEDS ORDERED: APIX1TAB3 PO (09:02)
[2017-08-26] MEDS ORDERED: ULT/50 PO (11:36)
[2017-11-02] MEDS ORDERED: FRS/40 PO ×2 (09:20→12:49)
[2017-11-02] MEDS ORDERED: PRED10TA PO (09:28)
[2017-11-02] MEDS ORDERED: ASCO1CAP3 PO (09:28)
[2017-12-07] MEDS ORDERED: FRS/40 PO (14:00)
[2017-12-07] MEDS ORDERED: CEPH500C2 PO (14:01)
[2017-12-07] MEDS ORDERED: TURMERIC PO (14:02)
== END 2017-06-28 14:06 | disposition home or self-care (01) | DRG 176 ==
LOC: C.EDB 21:05 → C.2T 06-27 02:47 → ENRESERV 06-27 02:58 → OBSVTOIN 06-27 08:56 → ENRESERV 06-27 18:51 → C.MS2W 06-27 20:07
PROVIDERS: ADMIT Hospitalist; ATTEND Family Medicine
DX: I26.99 Other pulmonary embolism without acute cor pulmonale (principal); I10 Essential (primary) hypertension; M10.9 Gout, unspecified; Z86.711 Personal history of pulmonary embolism

== ENCOUNTER → 2017-08-12 | Outpatient (CLI) | payer OTHER ==
[~2017-08-12] MED LIST changes: +CINN1CAP2 PO; -OMEG10007 PO; +OPTIRAY 320 IV PRN; +RIVA1TAB4 PO; -TRIA75TA53 PO; +TRIATAB3 PO; +XRL15 PO
--- NOTE | 2017-08-12 15:20 | DIAGNOSTIC IMAGING REPORT ---
(CHEST FOR PE) ANGIO WITH CLINICAL HISTORY: 47 years-old Male presenting with recent pulmonary emboli, follow-up to ensure resolution, ^OTHER PULMONARY EMBOLISM WITHOUT ACUTE COR PULMONALE. TECHNIQUE: Multidetector CT angiography of the chest was performed after administration of intravenous contrast. 3-D volumetric and/or maximum intensity projection (MIP) images were subsequently reconstructed for review. IV contrast: 107 mL of Optiray 320. A dose lowering technique was used consistent with the principles of ALARA (as low as reasonably achievable). COMPARISON: 06/26/2017. CT DOSE (mGy.cm): The estimated cumulative dose is 832.75 mGy.cm. FINDINGS: Sleeping Car Porter topogram: Unremarkable. Pulmonary vasculature: The study is suboptimal for the assessment of the pulmonary vascular tree secondary to timing of the contrast bolus and respiratory motion artifact. Allowing for limited image quality, no central filling defect to suggest pulmonary embolus. The previously noted emboli in the right middle and lower lobes have largely resolved though the evaluation is limited. Main pulmonary artery is not enlarged. No flattening of the interventricular septum. No intracardiac filling defect. No reflux of contrast into the hepatic veins. Remaining chest: On soft tissue windows, normal thyroid and thoracic inlet. Interval increase in size of mediastinal and bilateral hilar lymphadenopathy. Lymphadenopathy may also be present in the left supraclavicular fossa. Normal aorta. Top normal heart size. No pericardial or pleural effusion. Hepatic steatosis. On lung windows, dependent peripheral patchy opacities in the posterior basal right lower lobe and to a lesser extent in the right middle lobe and a similar distribution as on prior exam. Solid 10 mm pulmonary nodule in the right upper lobe (series 4 image 174). Numerous additional solid pulmonary nodules evident in all 5 lobes. Evaluation on the prior exam was degraded by motion artifact limiting evaluation for new or progressed nodules. Central airways patent. On bone windows, degenerative changes of the spine. IMPRESSION: 1. Allowing for suboptimal image quality, no evidence of pulmonary embolus. 2. Evolving opacities in the right middle and right lower lobes in a similar distribution as on prior exam, likely resolving pulmonary infarcts. 3. Numerous solid pulmonary nodules throughout all 5 lobes most suspicious for metastatic disease. Correlate with underlying known primary. 4. Worsening mediastinal and hilar lymphadenopathy. Again, this is most concerning for progression of metastatic disease. The report will be called/faxed according to standard departmental protocol. Electronically signed by: Parmjit Alfredo M.D. 08/12/2017 3:19 PM Dictated Date/Time: 08/12/2017 3:11 PM
== END | disposition home or self-care (01) ==
LOC: C.CTS 14:11
PROVIDERS: ATTEND Family Medicine
DX: I26.99 Other pulmonary embolism without acute cor pulmonale (principal); R91.8 Other nonspecific abnormal finding of lung field; R59.0 Localized enlarged lymph nodes

== ENCOUNTER → 2017-08-12 | Outpatient (CLI) | payer OTHER ==
[~2017-08-12] MED LIST changes: -OPTIRAY 320 IV PRN
--- NOTE | 2017-08-12 14:54 | DIAGNOSTIC IMAGING REPORT ---
RIGHT LOWER EXTREMITY VENOUS DOPPLER HISTORY: Right lower leg pain. COMPARISON STUDY: None. FINDINGS: There is normal compressibility, flow, and augmentation within the right lower extremity deep venous system. Subcutaneous edema within the right calf. IMPRESSION: No DVT within the right lower extremity Electronically signed by: Linden Escobar M.D. 08/12/2017 2:52 PM Dictated Date/Time: 08/12/2017 2:52 PM
== END | disposition home or self-care (01) ==
LOC: C.ULTR 14:08
PROVIDERS: ATTEND Family Medicine
DX: M79.661 Pain in right lower leg (principal)

== ENCOUNTER → 2017-08-26 | Day surgery (SDC) | payer OTHER ==
[2017-08-24 09:03] VITALS: BMI 60.0
[~2017-08-26] VITALS: Ht 180.3 cm; Wt 194.6 kg
[~2017-08-26] MED LIST changes: +APIX1TAB3 PO; +ATROPINE SULFATE 0.1 MG/ML 5ML SYR IV PRN; +CEFAZOLIN SOD 1 GM VIAL ONE; +DEXAMETHASONE SOD INJ 4 MG/ML VIAL ONE; +FENTANYL CITRATE INJ 50 MCG/1 ML 2 ML VIAL ONE; +GLYCOPYRROLATE INJ 0.2 MG/ML VIAL ONE; +LABETALOL HCL IV 5 MG/ML 20ML IV PRN; +LACTATED RINGER'S 1000ML 1,000 ML IV SCH; +LARYING-O-JET KIT (LTA) ONE; +LIDOCAINE HCL 2% 2 ML VIAL (20MG/ML) ONE; +MIDAZOLAM HCL 1 MG/ML 2ML VIAL ONE; +MoRPHine SULFATE 2 MG/ML CARP IV PRN; +NEOSTIGMINE METHYLSULFATE 5 MG/5 ML SYR ONE; +ONDANSETRON INJ 2 MG/ML 2 ML VIAL IV PRN; +ONDANSETRON INJ 2 MG/ML 2 ML VIAL ONE; +PROPOFOL IV EMULSION 10 MG/ML 20 ML VIAL IV ONE; -RIVA1TAB4 PO; +ROCURONIUM BROMIDE 10 MG/ML 5 ML VIAL IV ONE; +SUCCINYLCHOLINE CHLORIDE 20 MG/ML 10 ML VIAL IV ONE; +TRAMADOL HCL 50 MG TAB ONE; +TRAMADOL HCL 50 MG TAB PO PRN; +ULT/50 PO; -XRL15 PO
[2017-08-26 09:40] VITALS: BP 167/72; PULSE 85; TEMP 36.8; O2SAT 98; Ht 180.3 cm; Wt 194.6 kg
--- NOTE | 2017-08-26 10:49 | History & Physical Bridge Note ---
H&P Re-Evaluation Bridge Note: I have examined the patient, reviewed the History & Physical and in the interval since the performance of the History & Physical I have noted the following changes of clinical significance: No changes noted
--- NOTE | 2017-08-26 11:38 | Discharge Instructions ---
Discharge Instructions Date of Service Aug 26, 2017. Visit Reason for Visit: Mediastinal Adenopathy, Multiple Lung Nodules Discharge Discharge Diagnosis / Problem: Mediastinal Adenopathy, Multiple Lung Nodules Discharge Goals Goal(s): Learn about illness Activity Recommendations Activity Limitations: as noted below 1. Do not drive for 2-3 days. Anesthesia . Post Anesthesia Instructions: If you have had General Anesthesia or IV Sedation: * Do not drive today. * Resume driving when surgeon permits. * Do not make important decisions or sign legal documents today. * Call surgeon for: 1. Temperature elevations greater than 101 degrees F. 2. Uncontrollable pain. 3. Excessive bleeding. 4. Persistent nausea and vomiting. 5. Medication intolerance (nausea, vomiting or rash). * For nausea and vomiting use only clear liquids such as: tea, soda, bouillon until nausea subsides, then gradually increase diet as tolerated. * If you have any concerns or questions, call your surgeon's office. If physician is unavailable and it is an emergency, call 911 or go to the nearest emergency room. . Instructions / Follow-Up Instructions / Follow-Up 1. You may remove dressings in 3 days and shower thereafter. No tub baths. 2. Keep your scheduled appointment with Dr. Toney on September 05, 2017 @ 10: 00am. Diet Recommendations Recommended Home Diet: resume previous diet Pending Studies Studies pending at discharge: no Medical Emergencies . Who to Call and When: Medical Emergencies: If at any time you feel your situation is an emergency, please call 911 immediately. . Non-Emergent Contact Non-Emergency issues call your: Surgeon Call Non-Emergent contact if: you have a fever, your pain is not controlled, wound has increased drainage . . "Provider Documentation" section prepared by Austin Driscoll. .
--- NOTE | 2017-08-26 12:37 | [facility] Post Operative Brief Note ---
Immediate Operative Summary Operative Date Aug 26, 2017. Pre-Operative Diagnosis Mediastinal lymphadenopathy Post-Operative Diagnosis Non necrotizing granulomas Procedure(s) Performed Mediastinoscopy with lymph node biopsies Surgeon Dr Toney Public Address Announcer Surgeon(s) Giovanny Driscoll PA-C Estimated Blood Loss 5ML Findings Consistent with Post-Op Diagnosis Specimens A. R4 lymph node x2 B. R10 lymph node C. Level 7 lymph node D. L4 lymph node Frozen section #1 R4 lymph node sent out at 1214 Frozen section #2 Level 7 lymph node sent out at 1214 Culture #1 Mediastinal lymphnodes for gram stain, culture and sensitivity, aerobic, anaerobic, fungus, acid fast Drains None Anesthesia Type General Complication(s) none Disposition Disposition: Recovery Room / PACU
[2017-08-26] MEDS: FENTANYL CITRATE INJ 50 MCG/1 ML 2 ML VIAL IV PRN ×2 (13:02→13:05)
--- NOTE | 2017-08-26 13:07 | DIAGNOSTIC IMAGING REPORT ---
CHEST ONE VIEW PORTABLE CLINICAL HISTORY: mediastinoscopy post procedure COMPARISON STUDY: 06/28/2017 FINDINGS: No evidence pneumothorax. Moderate cardiomegaly. Mild atelectasis left base. Diaphragms smooth. IMPRESSION: No evidence for pneumothorax post median stenoscopy The above report was generated using voice recognition software. It may contain grammatical, syntax or spelling errors. Electronically signed by: García Oconnor M.D. 08/26/2017 1:05 PM Dictated Date/Time: 08/26/2017 1:04 PM
--- NOTE | 2017-08-26 13:28 | Anesthesiology Progress Note ---
Anesthesia Post Op Note Date & Time Aug 26, 2017 at 13:28 Vital Signs Pain Intensity: 3 Vital Signs Past 12 Hours Date Time Temp Pulse Resp B/P (MAP) Pulse Ox O2 Delivery O2 Flow Rate FiO2 08/26/17 13:20 88 19 117/72 94 Nasal Cannula 2 08/26/17 13:10 91 17 135/65 93 Oxymask 10 08/26/17 13:00 92 21 124/75 95 Oxymask 10 08/26/17 12:51 36.2 100 20 132/74 97 Oxymask 10 08/26/17 09:40 36.8 85 16 167/72 (103) 98 Room Air Notes Mental Status: alert / awake / arousable, participated in evaluation Pt Amnestic to Procedure: Yes Nausea / Vomiting: adequately controlled Pain: adequately controlled Airway Patency, RR, SpO2: stable & adequate BP & HR: stable & adequate Hydration State: stable & adequate Anesthetic Complications: no major complications apparent
[2017-08-26 13:45] VITALS: BP 128/64; PULSE 85; TEMP 36.5; O2SAT 91
[2017-08-26 14:15] VITALS: BP 123/58; PULSE 84; O2SAT 90
[2017-08-26 14:46] VITALS: BP 132/62; PULSE 77; TEMP 36.6; O2SAT 92
--- NOTE | 2017-08-26 15:03 | OPERATIVE REPORT ---
DATE OF OPERATION: 08/26/2017 PREOPERATIVE DIAGNOSIS: Multiple pulmonary nodules with marked mediastinal adenopathy. POSTOPERATIVE DIAGNOSIS: Nonnecrotizing granulomas of mediastinal lymph nodes. PROCEDURE: Video mediastinoscopy. SURGEON: Carlos Toney MD VENDOR ANALYST: JESSY Redman (MrSohail Americo was present for the entire case. He first assisted, passed instruments and closed the skin incisions at the conclusion of the case). ANESTHESIA: General anesthesia endotracheal intubation. INDICATION FOR PROCEDURE AND FINDINGS: García Velasquez is a 47-year-old patient who has never smoked cigarettes, but suffered a pulmonary embolism and had a CTA which showed multiple small pulmonary nodules and marked mediastinal and hilar adenopathy. I saw him in the office this week and we had a long talk about diagnostic procedures. I stated we could do a minimally invasive lung biopsy. We could also do an endobronchial ultrasound. I felt that the differential included not only connective tissue disorder such as sarcoidosis, but also a lymphoma and felt that a mediastinoscopy would better serve as an endobronchial ultrasound. The patient and his decided they would like to proceed with this. Today on 08/26/2017, he underwent an uncomplicated video mediastinoscopy. I removed an entire large lymph node from the level 4 area as well as levels on the right. I biopsied the left level 4 as well as level 7 and a right level 10. I went over these slides with Parmjit Coleman and it was in the patient at sheets of non-necrotizing granulomas. We really got into no bleeding. I did not use the cautery much at all and only used it on the right side. The video mediastinoscope was slowly removed and we saw no evidence of bleeding. 3-0 Vicryl was used to close the muscle. 4-0 Monocryl was used in running subcuticular fashion to approximate the wound edges. He tolerated it well. I attest to the content of the Intraoperative Record and any orders documented therein. Any exception s are noted below.
== END | disposition home or self-care (01) ==
LOC: C.ACU 09:17
PROVIDERS: ATTEND Surgery
DX: I88.8 Other nonspecific lymphadenitis (principal); R91.8 Other nonspecific abnormal finding of lung field

== ENCOUNTER → 2017-10-03 | Outpatient (CLI) | payer OTHER ==
[~2017-10-03] MED LIST changes: -ATROPINE SULFATE 0.1 MG/ML 5ML SYR IV PRN; -CEFAZOLIN SOD 1 GM VIAL ONE; -DEXAMETHASONE SOD INJ 4 MG/ML VIAL ONE; -FENTANYL CITRATE INJ 50 MCG/1 ML 2 ML VIAL ONE; -GLYCOPYRROLATE INJ 0.2 MG/ML VIAL ONE; -LABETALOL HCL IV 5 MG/ML 20ML IV PRN; -LACTATED RINGER'S 1000ML 1,000 ML IV SCH; -LARYING-O-JET KIT (LTA) ONE; -LIDOCAINE HCL 2% 2 ML VIAL (20MG/ML) ONE; -MIDAZOLAM HCL 1 MG/ML 2ML VIAL ONE; -MoRPHine SULFATE 2 MG/ML CARP IV PRN; -NEOSTIGMINE METHYLSULFATE 5 MG/5 ML SYR ONE; -ONDANSETRON INJ 2 MG/ML 2 ML VIAL IV PRN; -ONDANSETRON INJ 2 MG/ML 2 ML VIAL ONE; +PERFLUTREN LIPID MICROSPHERE (DEFINITY) IV ONE; -PROPOFOL IV EMULSION 10 MG/ML 20 ML VIAL IV ONE; -ROCURONIUM BROMIDE 10 MG/ML 5 ML VIAL IV ONE; -SUCCINYLCHOLINE CHLORIDE 20 MG/ML 10 ML VIAL IV ONE; -TRAMADOL HCL 50 MG TAB ONE; -TRAMADOL HCL 50 MG TAB PO PRN
--- NOTE | 2017-10-03 15:46 | ECHOCARDIOGRAM REPORT ---
*NOTICE TO RECEIVING REPUBLICAN AGENCY This information is strictly Confidential and protected under [place] law. [place] law prohibits you from making any further disclosure of this information unless further disclosure is expressly permitted by the written consent of the person to whom it pertains or is authorized by law. A general authorization for the release of medical or other information is not sufficient for this purpose. Hospital accepts no responsibility if the information is made available to any other person, INCLUDING THE PATIENT. Interpretation Summary * Name: ALINA JARRETT Study Date: 10/03/2017 12:39 PM BP: 175/78 mmHg * Patient Location: [facility], [place] HR: 81 * : 1970 (M/d/yyyy) Gender: Male Height: 71 in * Age: 47 yrs Ethnicity: [place] Weight: 425 lb * Ordering Physician: Gt Pretty * Referring Physician: Gt Pretty PA-C * Performed By: Genet Pretty RCS * * Reason For Study: LUNG NODULES / SARCOID / PE * BSA: 2.9 m2 * -- Conclusions -- * 1. Technically difficult study despite use of Definity ultrasound contrast. * 2. Grossly normal LV size and function. LVEF 55-60%. Abnormal septal motion consistent with RV volume overload. * 3. RV not well visualized. Appears mildly dilated with normal function. * 4. No significant valvular pathology. * 5. No significant TR to estimate PASP. * 6. No prior studies for comparison. Procedure Details * A complete two-dimensional transthoracic echocardiogram was performed (2D, M-mode, Doppler and color flow Doppler). * The study was technically difficult. * There were technical limitations due to patient'sbody habitus * A contrast injection of Definity was performed to improve assessment of LV function. * Contrast was injected into an intravenous site in the right arm. * One vial of Definity ultrasound contrast was diluted in normal saline to a total volume of 10 ml. A total of '2' ml of solution was administered during imaging. * Lot # [id number] of Definity utilized for procedure. * Expiration date OCT 13. * The attending nurse who injected the contrast agent was MERON BEST RN. Left Ventricle * The left ventricle is grossly normal size. * There is mild concentric left ventricular hypertrophy. * Ejection Fraction = 55-60%. * No regional wall motion abnormalities noted. * Paradoxical septal motion is consistent with right ventricular volume overload. Right Ventricle * The right ventricle is not well visualized. * The right ventricle is mildly dilated. * The right ventricular systolic function is normal as assessed by tricuspid annular plane systolic excursion (TAPSE) (normal >1.5 cm). Atria * The left atrial size is normal. * Right atrial size is normal. * No ASD detected; PFO is not assessed. Mitral Valve * The mitral valve is not well visualized. * There is trace mitral regurgitation. Tricuspid Valve * Significant tricuspid regurgitation is absent. Aortic Valve * The aortic valve is not well visualized. * No hemodynamically significant valvular aortic stenosis. * There is no significant aortic regurgitation. Pulmonic Valve * The pulmonary valve is inadequately visualized, but the Doppler data is adequate for interpretation. * Pulmonic stenosis is absent. * Trace pulmonic valvular regurgitation. Great Vessels * The aortic root and proximal ascending aorta are normal sized. Pericardium/Pleural * There is no pericardial effusion. MMode 2D Measurements and Calculations IVSd 1.3 cm IVSs 2.0 cm LVIDd 4.3 cm LVIDs 3.4 cm LVPWd 1.6 cm LVPWs 1.4 cm IVS/LVPW 0.82 FS 20.2 % EDV(Teich) 80.9 ml ESV(Teich) 47.3 ml EF(Teich) 41.6 % EDV(cubed) 76.9 ml ESV(cubed) 39.1 ml EF(cubed) 49.1 % % IVS thick 52.2 % % LVPW thick -9.16 % LV mass(C)d 234.1 grams LV mass(C)dI 80.6 grams/m\S\2 LV mass(C)s 225.9 grams LV mass(C)sI 77.8 grams/m\S\2 SV(Teich) 33.6 ml SI(Teich) 11.6 ml/m\S\2 SV(cubed) 37.8 ml SI(cubed) 13.0 ml/m\S\2 LA dimension 4.3 cm LVOT diam 2.0 cm LVOT area 3.3 cm\S\2 Doppler Measurements and Calculations MV E max ildefonso 65.4 cm/sec MV A max ildefonso 54.7 cm/sec MV E/A 1.2 MV P1/2t max ildefonso 91.5 cm/sec MV P1/2t 90.3 msec MVA(P1/2t) 2.4 cm\S\2 MV dec slope 296.5 cm/sec\S\2 MV dec time 0.13 sec Ao V2 max 86.3 cm/sec Ao max PG 3.0 mmHg Ao max PG (full) 1.3 mmHg MARIBEL(V,A) 2.5 cm\S\2 MARIBEL(V,D) 2.5 cm\S\2 LV V1 max PG 1.7 mmHg LV V1 max 64.5 cm/sec PA V2 max 98.4 cm/sec PA max PG 3.9 mmHg
== END | disposition home or self-care (01) ==
LOC: C.CPL 12:26
PROVIDERS: ATTEND Physician Assistant
DX: D86.9 Sarcoidosis, unspecified (principal)

== ENCOUNTER → 2017-10-25 | Outpatient (CLI) | payer OTHER ==
[~2017-10-25] MED LIST changes: +OPTIRAY 320 IV PRN; -PERFLUTREN LIPID MICROSPHERE (DEFINITY) IV ONE
--- NOTE | 2017-10-25 16:51 | DIAGNOSTIC IMAGING REPORT ---
ABD WITH IV AND ORAL CONT (CT) HISTORY: 47 years-old Male ABDOMINAL PAIN, CARCOID acute generalized abdominal pain. History of sarcoidosis. COMPARISON: CTA of the chest 08/12/2017 TECHNIQUE: Multiple axial CT images of the abdomen was following the administration of both IV and oral contrast. 94 mCi 320 IV contrast was administered. A dose lowering technique was used consistent with the principals of JEROMY. FINDINGS: Evaluation of the lung bases is limited secondary to respiratory motion. There are scattered solid nodules noted within the left lung base measuring up to 3 mm. Subsegmental dependent consolidation of the right lower lobe suggest atelectasis/scarring. There is no pneumatosis or pneumoperitoneum. Imaged inferior cardiac chambers are unremarkable. Prominent epicardial fat pad. Hepatic steatosis. No focal hepatic mass lesions or intrahepatic biliary ductal dilation identified. Spleen, pancreas and adrenal glands are within normal limits. Minimal nonspecific bilateral perinephric stranding. No renal calculi or obstructive uropathy identified. Aorta is normal in course and caliber without aneurysm or dissection identified. Mild atherosclerosis. Partially imaged mildly prominent 8 mm paraesophageal lymph node is seen on image 1 of series 3 which previously measured 11 mm on CTA of the chest 08/12/2017. No pathologic retroperitoneal or abdominal adenopathy identified. Small duodenal diverticulum. No bowel obstruction or focal bowel wall thickening. The imaged large bowel, terminal ileum and appendix appear normal. Diastases recti with obesity. Portions of the abdominal wall are outside the [id number]. No ascites. Multilevel facet arthropathy without suspicious lytic or blastic bony lesions identified. Multilevel endplate spurring of the spine. IMPRESSION: 1. No acute intra-abdominal or intrapelvic abnormality identified. 2. Partially imaged mildly prominent periesophageal lymph node appears to have decreased in size from comparison CTA of the chest 08/12/2017. No pathologic adenopathy identified within the abdomen. 3. No bowel obstruction or focal bowel wall thickening. 4. Hepatic steatosis. The above report was generated using voice recognition software. It may contain grammatical, syntax or spelling errors. Electronically signed by: Vinny Huntley M.D. 10/25/2017 4:50 PM Dictated Date/Time: 10/25/2017 4:41 PM
== END | disposition home or self-care (01) ==
LOC: C.CTS 15:51
PROVIDERS: ATTEND Physician Assistant
DX: D86.9 Sarcoidosis, unspecified (principal); R10.9 Unspecified abdominal pain; K76.0 Fatty (change of) liver, not elsewhere classified

== ENCOUNTER → 2017-11-02 | Day surgery (SDC) | payer OTHER ==
[~2017-11-02] VITALS: Ht 177.8 cm; Wt 202.8 kg
[~2017-11-02] MED LIST changes: +ASCO1CAP3 PO; +FENTANYL CITRATE INJ 50 MCG/1 ML 2 ML VIAL ONE; +FRS/40 PO; +HEPARIN SOD (PORCINE) 1000 UNIT/ML 10 ML VIAL ONE; +LIDOCAINE HCL 1% 20 ML VIAL ONE; +MIDAZOLAM HCL 1 MG/ML 2ML VIAL ONE; +NITROGLYCERIN/D5W 100MCG/ML 20ML SYR ONE; +NiCARDipine HCL INJ 2.5 MG/ML 10 ML AMP ONE; -OPTIRAY 320 IV PRN; +PRED10TA PO
[2017-11-02 10:54] VITALS: BP 151/92; PULSE 70; TEMP 37; O2SAT 98; Ht 177.8 cm; Wt 202.8 kg
--- NOTE | 2017-11-02 11:31 | Pre Sedation Assessment ---
Pre Sedation Assessment General Date of Sedation: November 02, 2017. Vital Signs Past 12 Hours Date Time Temp Pulse Resp B/P (MAP) Pulse Ox O2 Delivery O2 Flow Rate FiO2 11/02/17 10:54 37.0 70 16 151/92 (111) 98 Room Air Review Cardiovascular: regular rate, rhythm, no edema Lungs: chest non-tender, lungs clear Pre-Sedation Airway Assessment Smoking Status: Never Smoker Hx of Sleep Apnea: Yes Hx of difficult intubation: No Short Thick Neck: Yes Thyro-mental Distance: < or =3 Finger Breadths Oral Cavity: WNL Mallampati Classification: Class III ASA Classification: Class III Procedure Planning Contraindications for Sedation: None Current Medications Reviewed: Yes Notes The planned sedation has been discussed with the patient. Informed Consent was obtained. I have identified the patient, determined the appropriateness of sedation and have assessed the patient immediately prior to the procedure. All medicine(s) and interventions are by my order.
--- NOTE | 2017-11-02 12:13 | Post Sedation Assessment ---
Post Sedation Assessment General Date of Sedation November 02, 2017. Vital Signs: Vital Signs Past 12 Hours Date Time Temp Pulse Resp B/P (MAP) Pulse Ox O2 Delivery O2 Flow Rate FiO2 11/02/17 10:54 37.0 70 16 151/92 (111) 98 Room Air Post Procedure Recovery Score Activity: (2) Moves 4 extremities * Respiration: (2) Deep breath/cough Circulation: (2) +/-20% PreAnes Value Consciousness: (2) Fully Awake Oxygen Saturation: (2) > 92% On Room Air Post Anesthesia Score: 10 Discharge Sedation Level of Care: Fast Track Phase II Post Sedation Plan On clinical assessment, the patient appears to have tolerated the sedation without complications. Patient is recovering as anticipated. Patient will continue to be monitored by nursing and may be discharged when sedation discharge criteria are met per below protocol. Upon Completions of procedure and additional 15 minutes continue every 5 minute vital signs and the P.A.R. score; then discharge to a Phase I or Fast Track to Phase II per the following guidelines: * Discharge Patient to appropriate Phase II area if PAR is 8 or greater or return to pre- procedure baseline. The post - procedure orders will be as directed. * If PAR score is less than 8 or not return to pre-procedure baseline then patient will follow Phase I monitoring till PAR is reached for Phase II. The Phase I may be done in procedure room or may call to secure a Phase I area. * If naloxone or flumazenil are used for reversal, hold in Phase I for an additional 60 -120 minutes before discharge to Phase II. Please call the Sedation Physician to re-evaluate and complete post-note for discharge to Phase II area. Do NOT discharge from procedure sedation or Phase 1 until post- sedation evaluation note is complete by procedure /sedation MD Sedation Discharge Instructions to be given to the patient at discharge to home.
--- NOTE | 2017-11-02 12:47 | Cardiac Catheterization ---
Procedure Note Procedure Date November 02, 2017. Pre-Procedure Diagnosis Cardiothoracic Symptom AUC Score 7 Post-Procedure Diagnosis Normal Coronary Arteries, Elevated Intracardiac Pressures Procedure(s) Performed Coronary Angiography, Left Heart Cath, Right Heart Cath, LV Angiography Ticket Collector Or Usher Dash Surg Nurse(s) Jerman Estimated Blood Loss 10 Medication(s) Fentanyl, Heparin, Nitroglycerin, Versed, Lidocaine 1% Summary of Findings Indication: Exertional dyspnea; Heart failure; Newly diagnosed sarcoidosis with concern for pulmonary hypertension Access: 6Fr right radial artery; 6Fr right antecubital vein Catheters: Elwood; Pigtail; 6Fr swan Findings: LM - large caliber vessel, luminal irregularities LAD - moderate caliber vessel, luminal irregularities in the mid segment, distal vessel is small with diffuse disease as tapers to the apex Circumflex - large caliber vessel, luminal irregularities, gives off large 2nd obtuse marginal without significant disease RCA - dominant, large caliber vessel, angiographically normal RA 16 RV 41/15 PA 36/27 (32) LVEDP 15 LVEF 60-65% PaSat 65% AoSat 95% Blanca CO/CI 6.4/2.2 Thermo CO/CI 9/3.1 Transpulmonary gradient 17 PVR 2 Wood Unit (thermo); 3 Wood Unit (blanca) Diastolic pressure gradient 12 Arterial Closure: TR Band Summary: 1. Minimal non-obstructive coronary artery disease - mild diffuse disease in apical LAD 2. Borderline left sided filling pressures. 3. Elevated right sided filling pressures. 4. Mild pulmonary hypertension (combined post and pre-capillary) 5. Preserved cardiac output. LVEF 60-65% Recommendations: - Recommend increased diuretics for mild HFpEF with predominantly right sided heart failure - Continued ASCVD risk factor modification Hemodynamics Rest Ao: 117/78/96 Final Ao: 123/70/92 LV: 131/15 Recommendations Medical therapy and/or Counseling Specimens None Radiation Exposure (mGy) 1942 Contrast (mls) 60 Opti Fluids (cc crystalloids) 70 Drains None Anesthesia Moderate Procedural Complication(s) None Disposition Brewery Technician Holding/Recovery ACC Data Cardiac Status Clinical evaluation leading to the procedure CAD Presntation: Stable angina Anginal Classification: CCS III Heart Failure: No, NYHA Class: CCS I Cardiogenic Shock w/in 24Hrs: No Cardiac Arrest w/in 24Hrs: No Imaging studies past 6 months: Yes Stress studies past 6 months: No Closure Device Percutaneous Entry Location: Radial Closure Device: Radial Band Recommendations: Medical therapy and/or Counseling Intraprocedure Events Significant Dissection: No Perforation: No
--- NOTE | 2017-11-02 12:51 | Discharge Instructions ---
Discharge Instructions Procedure Procedure Date: November 02, 2017. Reason for Visit: Dyspnea *Dr Bowling Doing*. Discharge Discharge Date: November 02, 2017. Discharge Diagnosis: Heart failure with preserved ejection fraction. Last Recorded Wt (Kilograms): 202.8 Anesthesia Post Anesthesia Instructions: If you have had General Anesthesia or IV Sedation: * Do not drive today. * Resume driving when surgeon permits. * Do not make important decisions or sign legal documents today. * Call surgeon for: 1. Temperature elevations greater than 101 degrees F. 2. Uncontrollable pain. 3. Excessive bleeding. 4. Persistent nausea and vomiting. 5. Medication intolerance (nausea, vomiting or rash). * For nausea and vomiting use only clear liquids such as: tea, soda, bouillon until nausea subsides, then gradually increase diet as tolerated. * If you have any concerns or questions, call your surgeon's office. If physician is unavailable and it is an emergency, call 911 or go to the nearest emergency room. Instructions Activity Recommendations: limitations as noted below Recommended Home Diet: low sodium Allergies: Coded Allergies: No Known Allergies (Unverified , 06/01/17) Follow Up Additional Instructions: ACTIVITY RECOMMENDATIONS: Excess manipulation of the wrist should be avoided for the next 24-48 hours. * No lifting over 2 pounds (approximately a 1/2 gallon of milk) with the utilized arm for 24 hours. * No strenuous activity such as bowling or tennis for 3 days. * Keep the site of the procedure covered with a bandage for 24 hours. *You may shower the day after the procedure. Do not take a tub bath or submerge the puncture site in water for the next 3 days. *Do not operate any motorized equipment for 3 days. SPECIAL CARE INSTRUCTIONS: The site may be slightly bruised and sore following your procedure. Should any of the following occur, contact the Dr. who performed your procedure. 1. Redness/inflammation, swelling, chills, or fever, or colored drainage at procedure site within 3-7 days after your procedure. 2. Coldness, discoloration, ongoing numbness, severe pain, or swelling. Expect mild tingling of hand and tenderness at the puncture site for up to three days. If this persists beyond three days, or other symptoms develop, notify the Dr. who performed your procedure. BLEEDING: If the procedure site on your wrist begins to bleed, do not panic 1. Place 1 or 2 fingers firmly just slightly above the insertion site to stop the bleeding. You may be able to feel your pulse as you hold pressure. 2. Lift your finger after 5 minutes to see if the bleeding has stopped. 3. Once the bleeding has stopped, gently wipe the wrist area clean with a bandage. * If the bleeding from your wrist does not stop after 10 minutes, or if there is a large amount of bleeding or spurting, call 911 (do not drive yourself to the hospital). SKIN IRRITATION: * You may experience some redness and/or swelling in the area where radiation was administered. If any skin irritation occurs, please contact your family physician. FOLLOW UP VISIT: Keep any scheduled doctor appointments. Follow-up with: Dr. Bowling' Office in 2-3 weeks. Repeat labs (BMP) in 1 week. Bessy Hoang Recommendations: Call your doctor if: * Temperature above 101 degrees * Pain not relieved by pain medicine ordered * There is increased drainage or redness from any incision * You have any unanswered questions or concerns. Your Doctors Instructions noted above were prepared by provider Aurelio Bowling. Patient Signature Section: Patient Instructions Signature Page García Velasquez Patient (or Guardian) Signature/Date: I have read and understand the instructions given to me by my caregivers. Caregiver/RN/Doctor Signature/Date: The above-named patient and/or guardian has received patient instructions on this date. + Original Patient Signature Page (only) stays with chart. Please make copy for patient.
[2017-11-02 15:15] VITALS: BP 147/83; PULSE 76; O2SAT 94
== END ==
LOC: C.CATH 10:20
PROVIDERS: ATTEND Internal Medicine Interventional Cardiology
DX: D86.9 Sarcoidosis, unspecified (principal); I27.20 Pulmonary hypertension, unspecified; I10 Essential (primary) hypertension; R06.00 Dyspnea, unspecified; G47.33 Obstructive sleep apnea (adult) (pediatric); Z99.89 Dependence on other enabling machines and devices; E66.01 Morbid (severe) obesity due to excess calories; Z86.711 Personal history of pulmonary embolism; Z79.01 Long term (current) use of anticoagulants; Z79.52 Long term (current) use of systemic steroids; Z83.3 Family history of diabetes mellitus; Z83.49 Family history of other endocrine, nutritional and metabolic diseases; Z82.49 Family history of ischemic heart disease and other diseases of the circulatory system; M10.9 Gout, unspecified; Z80.1 Family history of malignant neoplasm of trachea, bronchus and lung; Z88.3 Allergy status to other anti-infective agents

== ENCOUNTER → 2018-01-17 | Outpatient (CLI) | payer OTHER ==
[~2018-01-17] MED LIST changes: -ASCO10003 PO; +CEPH500C2 PO; -CHOL20005 PO; -CINN1CAP2 PO; -FENTANYL CITRATE INJ 50 MCG/1 ML 2 ML VIAL ONE; -HEPARIN SOD (PORCINE) 1000 UNIT/ML 10 ML VIAL ONE; -LIDOCAINE HCL 1% 20 ML VIAL ONE; -MIDAZOLAM HCL 1 MG/ML 2ML VIAL ONE; -NITROGLYCERIN/D5W 100MCG/ML 20ML SYR ONE; -NiCARDipine HCL INJ 2.5 MG/ML 10 ML AMP ONE; -TRIATAB3 PO; +TURMERIC PO; -ULT/50 PO
--- NOTE | 2018-01-17 09:14 | DIAGNOSTIC IMAGING REPORT ---
ABDOMEN COMPLETE (US) CLINICAL HISTORY: R10.9 Abdominal pain COMPARISON STUDY: CT scan dated 10/25/2017 FINDINGS: The liver is mildly enlarged measuring 22 cm. The liver is of increased echogenicity consistent with hepatic steatosis. The gallbladder appears sonographically normal. The spleen measures 12.5 cm in length. There is no ductal dilatation. The common buttock measures 5 mm. Pancreatic visualization was limited due to the patient's body habitus. No pancreatic abnormalities were delineated. The right kidney measures 11.5 cm in length. The left kidney measures 11.9 cm in length. No renal masses were visualized. There is no hydronephrosis. The abdominal aorta was not well-visualized. No aneurysm is identified. The IVC appeared patent. IMPRESSION: 1. Hepatic steatosis 2. No ductal dilatation 3. Ultrasonographically normal gallbladder 4. No splenic or renal masses identified. Electronically signed by: Niko Palomares M.D. 01/17/2018 9:13 AM Dictated Date/Time: 01/17/2018 9:10 AM
== END | disposition home or self-care (01) ==
LOC: C.ULTR 08:30
PROVIDERS: ATTEND Physician Assistant
DX: R10.9 Unspecified abdominal pain (principal); K76.0 Fatty (change of) liver, not elsewhere classified

== ENCOUNTER → 2018-01-18 | Outpatient (CLI) | payer OTHER ==
[~2018-01-18] MED LIST changes: +OPTIRAY 320 IV PRN
--- NOTE | 2018-01-18 13:23 | DIAGNOSTIC IMAGING REPORT ---
(CHEST FOR PE) ANGIO WITH CT DOSE: 884.99 mGy.cm HISTORY: Chest pain dyspnea TECHNIQUE: Multiaxial CT images of the chest were performed following the intravenous administration of contrast to evaluate the pulmonary arteries. Maximal intensity projection images were also obtained. A dose lowering technique was utilized adhering to the principles of ALARA. COMPARISON STUDY: 08/12/2017 FINDINGS: Pulmonary arterial vasculature enhances appropriately. Lungs are grossly clear. Parenchymal nodularity stable compared to the prior exam no focal infiltrate. Stable to mildly improved mediastinal and hilar adenopathy. IMPRESSION: No evidence for pulmonary embolus. Lungs are clear. Stable pulmonary micronodule change. mildly improving hilar or mediastinal adenopathy. The above report was generated using voice recognition software. It may contain grammatical, syntax or spelling errors. Electronically signed by: García Oconnor M.D. 01/18/2018 1:22 PM Dictated Date/Time: 01/18/2018 1:11 PM
== END | disposition home or self-care (01) ==
LOC: C.CTS 12:40
PROVIDERS: ATTEND Physician Assistant
DX: R10.9 Unspecified abdominal pain (principal)